=== PATIENT | male | born 1990 | race African-American/Black ===

== ENCOUNTER → 2022-01-14 10:01 | Day surgery (SDC) | payer OTHER, SELFPAY ==
[2022-01-14 10:24] VITALS: BMI 27.2
[2022-01-14 10:25] VITALS: BP 136/78; PULSE 118; RESP 28; TEMP 36.6; O2SAT 95
[2022-01-14 10:36] LABS: MANUAL DIFF FLAG NO
[2022-01-14 10:41] LABS: Basophils Percent Auto 0.3 % (0-2); Eosinophils Absolute Auto 0.1 X10*3/uL (0.0-0.4); Eosinophils Percent Auto 0.9 % (0-4); Hematocrit 34.6 % (42.0-52.0); Hemoglobin 10.7 g/dl (14.0-18.0); Imm Gran Abs Auto 0.06 X10*3/uL (0.00-0.03); Imm Gran Pct Auto 0.7 % (0.0-0.4); Lymphocytes Absolute Auto 0.7 X10*3/uL (1.2-4.9); Lymphocytes Percent Auto 7.1 % (20-40); Mean Corpuscular HGB Conc 30.9 g/dl (31.0-36.0); Mean Corpuscular Hemoglobin 27.2 pg (27.0-33.0); Mean Platelet Volume 11.5 fL (9.4-12.4); Neutrophils Absolute Auto 7.3 x10*3/uL (2.0-8.3); Platelet Count 162 X10*3/uL (160-400); Red Blood Count 3.93 X10*6/uL (4.60-5.80); Red Cell Distribution Width 20.4 % (11.0-16.0); White Blood Count 9.1 X10*3/uL (4.8-10.8)
[2022-01-14 10:46] LABS: INTERNATIONAL NORM RATIO 1.1 (0.9-1.1); Prothrombin Time 12.6 SEC (10.0-13.1)
--- NOTE | 2022-01-14 10:46 | PC.NURSE ---
dr conway will assess patient prior to procedure
[2022-01-14 10:49] LABS: Partial Thromboplastin Time 30.7 SEC (26.0-36.4)
[2022-01-14 11:29] LABS: Anion Gap 22 (12-20); Carbon Dioxide 22 mmol/L (22-29); Chloride 92 mmol/L (96-108); Potassium 3.6 mmol/L (3.3-5.1); Sodium 132 mmol/L (135-145)
--- NOTE | 2022-01-14 11:35 | PC.NURSE ---
pt cancelled by surgeron will keep f/u appt
--- NOTE | 2022-01-14 12:13 | PC.NURSE ---
pt cancelled per surgeron congested cough will be rescheduled
== END ==
PROVIDERS: Visit Provider Transplant Surgery
DX: N18.6 End stage renal disease (principal); Z53.09 Procedure and treatment not carried out because of other contraindication; R05.9 Cough, unspecified
CPT/HCPCS: 36415; 80051; 85025; 85610; 85730

== ENCOUNTER 2022-09-08 10:48 | Emergency (ER) | payer OTHER, SELFPAY ==
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
[2022-09-08 10:55] VITALS: BP 128/64; PULSE 108; O2SAT 95
[2022-09-08 10:57] VITALS: BP 136/81; PULSE 103; RESP 18; TEMP 36.8; O2SAT 97; BMI 27.9
[2022-09-08 10:59] VITALS: BP 136/81; PULSE 103; RESP 18; TEMP 36.8; O2SAT 95
--- NOTE | 2022-09-08 11:07 | PC.NURSE ---
ARRIVED TO ED IN [facility] JAIN TO BEDSIDE. COLLAR REMOVED. NEURO ASSESSMENT PERFORMED BY PROVIDER. PLAN IS FOR XRAYS. PT AGREEABLE TO PLAN
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
--- OUTSIDE RECORDS SUMMARY | 2022-09-08 11:33 | XMS_ITS | Continuity of Care Document ---
:1990 Author Organization [facility] Address [address] [place] [address]- Care Team Providers Name Role Phone Jhony BRADLEY, Denice Primary Care Physician Encounter [facility] [place] Date(s): 04/25/21 - 06/06/21 [facility] [address] [place] [address]- Attending Physician: Not on Staff, Attending MD Allergies, Adverse Reactions, Alerts Substance Reaction Severity Status NKA Active Immunizations Given and Recorded Vaccine Date Status Refusal Reason pneumococcal 23-valent vaccine1 12/30/14 Given pneumococcal 23-valent vaccine2 03/20/10 Given influenza virus vaccine, live3 12/30/14 Given Not Given Vaccine Date Status Refusal Reason influenza virus vaccine, inactivated 04/11/21 Not Given Patient Refuses 1Admin Note: [email or web address] Note: By [id number] Note: Dialysis Medications apixaban 5 mg oral tablet 1 tablet = 5 mg, By Mouth, 2 times a day, # 60 tablet, 3 Refills, Maintenance, 05/02/21 20:58:00 EST, Tablet, [facility], Partial fill upon patient request if the prescription is for aschedule II opioid drug., 165, cm, 04/24/21 11:40... Start Date: 05/02/21 Stop Date: 08/30/21 Status: Orderedaspirin 81 mg oral tablet, chewable 81 mg, 1, tablet, By Mouth, Daily, # 30 tablet, Refills 0, Tot. Refills 0, Maintenance, 04/24/21 14:02:00 EDT, Route to Pharmacy Electronically, [facility], Partial fill upon patient request if the prescription is for a schedule II op... Start Date: 04/24/21 Stop Date: 05/24/21 Status: Orderedatorvastatin 20 mg oral tablet 1 tablet = 20 mg, By Mouth, Daily, # 90 tablet, 0 Refills, Maintenance, 01/30/21 13:55:00 EDT, Tablet, [facility], Partial fill upon patient request if the prescription is for a schedule II opioid drug., 165.1, cm, 01/30/21 7:26:00 EDT,... Start Date: 01/30/21 Status: Orderedcalcitriol 0.25 mcg oral capsule 2 capsule = 0.5 mcg, By Mouth, Every Tuesday, Tuesday and Tuesday, # 26 capsule, 0 Refills, Maintenance, 04/24/21 14:01:00 EDT, Capsule, [facility], Partial fill upon patient request if the prescription is for a schedule II opioid micheal... Start Date: 04/24/21 Stop Date: 05/24/21 Status: Orderedcarvedilol 12.5 mg oral tablet 12.5 mg, 1, tablet, By Mouth, Every 12 hours, # 60 tablet, Refills 1, Tot. Refills 1, Maintenance, 03/08/21 12:23:00 EDT, Route to Pharmacy Electronically, [facility], Partial fill upon patient request if the prescription is for a schedu... Start Date: 03/08/21 Status: OrderedEnvarsus XR 4 mg oral tablet, extended release 3 tablet = 12 mg, By Mouth, Daily in AM, # 42 tablet, 0 Refills, Maintenance, 04/24/21 14:09:00 EDT,XR Tablet, [facility], Partial fill upon patient request if the prescription is fora schedule II opioid drug., 165, cm, 04/24/21 11:... Start Date: 04/24/21 Stop Date: 05/08/21 Status: Orderedisosorbide mononitrate 30 mg oral tablet, extended release 60 mg, 2, tablet, By Mouth, Daily, # 60 tablet, Refills 1, Tot. Refills 1, Maintenance, 01/30/21 13:54:00 EDT, Route to Pharmacy Electronically, [facility], Partial fill upon patient request if the prescription is for a schedule II opioi... Start Date: 01/30/21 Stop Date: 03/31/21 Status: OrderedLasix 80 mg oral tablet See Instructions, 1 tablet By Mouth Every Tuesday, , Tuesday and Tuesday. STOP TORSEMIDE, # 16 tablet, Refills 0, Tot. Refills 0, Maintenance, 04/24/21 14:02:00 EDT, Instructions Replace Required Details, Route to Pharmacy Electronically, [facility]... Start Date: 04/24/21 Status: OrderedMag-Ox 400 400 mg oral tablet 1 tablet = 400 mg, By Mouth, Daily, 0 Refills, Maintenance, 04/10/21 2:32:00 EDT, Tablet Start Date: 04/10/21 Status: OrderedMyfortic 180 mg oral delayed release tablet 3 tablet = 540 mg, By Mouth, 2 times a day, # 180 tablet, 1 Refills, Maintenance, 01/30/21 13:51:00 EDT, [facility], 165.1, cm, 01/30/21 7:26:00 EDT, Height, 80.9, kg, 01/26/21 20:14:00 EDT, Dry Weight Start Date: 01/30/21 Stop Date: 03/31/21 Status: OrderedRenvela 800 mg oral tablet 1 tablet = 800 mg, By Mouth, 3 times a day with meals, # 90 tablet, 0 Refills, Maintenance, 04/24/2114:03:00 EDT, Tablet, [facility], Partial fill upon patient request if the prescription is for a schedule II opioid drug., 165, cm, 1... 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
--- OUTSIDE RECORDS SUMMARY | 2022-09-08 11:33 | XMS_ITS | Continuity of Care Document ---
:1990 Author Organization [facility] Address [address] [place] [id number]- Care Team Providers Name Role Phone Bernadette De Los Santos MD Primary Care Physician Encounter [facility] [place] Date(s): 11/19/21 - 12/27/21 [facility] [address] [place] [id number]- Attending Physician: Ernestine Bloom MD Admitting Physician: Ernestine Bloom MD Referring Physician: Eris Ramey Allergies, Adverse Reactions, Alerts No Known Allergies Immunizations Given and Recorded Vaccine Date Status Refusal Reason pneumococcal 23-valent vaccine1 12/30/14 Given pneumococcal 23-valent vaccine2 03/20/10 Given influenza virus vaccine, live3 12/30/14 Given Not Given Vaccine Date Status Refusal Reason influenza virus vaccine, inactivated 04/11/21 Not Given Patient Refuses 1Admin Note: [email or web address] Note: By [id number] Note: Dialysis Medications acetaminophen 325 mg oral tablet 650 mg, 2, tablet, By Mouth, Every 8 hours, PRN, # 100 tablet, Refills 1, Tot. Refills 1, Maintenance, Pain , Moderate, 11/10/21 10:05:00 EDT, [facility] upon patient request if the presc... Start Date: 11/10/21 Status: Orderedapixaban 5 mg oral tablet 1 tablet = 5 mg, By Mouth, 2 times a day, # 60 tablet, 3 Refills, Maintenance, 05/02/21 20:58:00 EST, Tablet, [facility], Partial fill upon patient request if the prescription is for aschedule II opioid drug., 165, cm, 04/24/21 11:40... Start Date: 05/02/21 Stop Date: 08/30/21 Status: Orderedcalcitriol 0.25 mcg oral capsule 2 capsule = 0.5 mcg, By Mouth, Every Tuesday, Tuesday and Tuesday, # 26 capsule, 0 Refills, Maintenance, 04/24/21 14:01:00 EDT, Capsule, [facility], Partial fill upon patient request if the prescription is for a schedule II opioid micheal... Start Date: 04/24/21 Stop Date: 05/24/21 Status: Orderedcarvedilol 12.5 mg oral tablet 12.5 mg, 1, tablet, By Mouth, Every 12 hours, # 60 tablet, Refills 1, Tot. Refills 1, Maintenance, 03/08/21 12:23:00 EDT, Route to Pharmacy Electronically, [facility], Partial fill upon patient request if the prescription is for a schedu... Start Date: 03/08/21 Status: OrderedEnvarsus XR 4 mg oral tablet, extended release 3 tablet = 12 mg, By Mouth, Daily in AM, # 42 tablet, 0 Refills, Maintenance, 04/24/21 14:09:00 EDT,XR Tablet, [facility], Partial fill upon patient request if the prescription is fora schedule II opioid drug., 165, cm, 04/24/21 11:... Start Date: 04/24/21 Stop Date: 05/08/21 Status: Orderedisosorbide mononitrate 30 mg oral tablet, extended release 60 mg, 2, tablet, By Mouth, Daily, # 60 tablet, Refills 1, Tot. Refills 1, Maintenance, 01/30/21 13:54:00 EDT, Route to Pharmacy Electronically, [facility], Partial fill upon patient request if the prescription is for a schedule II opioi... Start Date: 01/30/21 Stop Date: 03/31/21 Status: OrderedLasix 80 mg oral tablet See Instructions, 1 tablet By Mouth Every Tuesday, , Tuesday and Tuesday. STOP TORSEMIDE, # 16 tablet, Refills 0, Tot. Refills 0, Maintenance, 04/24/21 14:02:00 EDT, Instructions Replace Required Details, Route to Pharmacy Electronically, [facility]... Start Date: 04/24/21 Status: OrderedMag-Ox 400 400 mg oral tablet 1 tablet = 400 mg, By Mouth, Daily, 0 Refills, Maintenance, 04/10/21 2:32:00 EDT, Tablet Start Date: 04/10/21 Status: OrderedMyfortic 180 mg oral delayed release tablet 3 tablet = 540 mg, By Mouth, 2 times a day, # 180 tablet, 1 Refills, Maintenance, 01/30/21 13:51:00 EDT, [facility], 165.1, cm, 01/30/21 7:26:00 EDT, Height, 80.9, kg, 01/26/21 20:14:00 EDT, Dry Weight Start Date: 01/30/21 Stop Date: 03/31/21 Status: OrderedRenvela 800 mg oral tablet 1 tablet = 800 mg, By Mouth, 3 times a day with meals, # 90 tablet, 0 Refills, Maintenance, 04/24/2114:03:00 EDT, Tablet, [facility], Partial fill upon patient request if the prescription is for a schedule II opioid drug., 165, cm, 1... Start Date: 04/24/21 Stop Date: 05/24/21 Status: OrderedtraMADol 50 mg oral tablet 1 tablet = 50 mg, By Mouth, Daily at bedtime, for severe pain may obtain fewer, # 7 tablet, 0 Refills, Maintenance, 11/10/21 11:27:00 EDT[facility] upon patient request if the prescription is for a schedule II opioid d... Start Date: 11/10/21 Status: Ordered Problem List Condition Effective Dates [...]
--- OUTSIDE RECORDS SUMMARY | 2022-09-08 11:33 | XMS_ITS | Continuity of Care Document ---
:1990 Author Organization [facility] Address [address] [place] [address]- Care Team Providers Name Role Phone Jhony BRADLEY, Denice Primary Care Physician Encounter [facility] Date(s): 05/04/21 - 06/03/21 [facility] [address] [place] [id number]- Attending Physician: Andrez River Admitting Physician: Andrez River Referring Physician: Andrez River Allergies, Adverse Reactions, Alerts Substance Reaction Severity Status NKA Active Immunizations Given and Recorded Vaccine Date Status Refusal Reason pneumococcal 23-valent vaccine1 12/30/14 Given pneumococcal 23-valent vaccine2 03/20/10 Given influenza virus vaccine, live3 12/30/14 Given Not Given Vaccine Date Status Refusal Reason influenza virus vaccine, inactivated 04/11/21 Not Given Patient Refuses 1Admin Note: [email or web address] Note: By [email or web address] Note: Dialysis Medications apixaban 5 mg oral tablet 1 tablet = 5 mg, By Mouth, 2 times a day, # 60 tablet, 3 Refills, Maintenance, 05/02/21 20:58:00 EST, Tablet, [facility], Partial fill upon patient request if the prescription is for aschedule II opioid drug., 165, cm, 04/24/21 11:40... Start Date: 05/02/21 Stop Date: 08/30/21 Status: Orderedaspirin 81 mg oral tablet, chewable 81 mg, 1, tablet, By Mouth, Daily, # 30 tablet, Refills 0, Tot. Refills 0, Maintenance, 04/24/21 14:02:00 EDT, Route to Pharmacy Electronically, [facility], Partial fill upon patient request if the prescription is for a schedule II op... Start Date: 04/24/21 Stop Date: 05/24/21 Status: Orderedatorvastatin 20 mg oral tablet 1 tablet = 20 mg, By Mouth, Daily, # 90 tablet, 0 Refills, Maintenance, 01/30/21 13:55:00 EDT, Tablet, [facility], Partial fill upon patient request if the prescription is for a schedule II opioid drug., 165.1, cm, 01/30/21 7:26:00 EDT,... Start Date: 01/30/21 Status: Orderedcalcitriol 0.25 mcg oral capsule 2 capsule = 0.5 mcg, By Mouth, Every Tuesday, Tuesday and Tuesday, # 26 capsule, 0 Refills, Maintenance, 04/24/21 14:01:00 EDT, Capsule, [facility], Partial fill upon patient request if the prescription is for a schedule II opioid micheal... Start Date: 04/24/21 Stop Date: 05/24/21 Status: Orderedcarvedilol 12.5 mg oral tablet 12.5 mg, 1, tablet, By Mouth, Every 12 hours, # 60 tablet, Refills 1, Tot. Refills 1, Maintenance, 03/08/21 12:23:00 EDT, Route to Pharmacy Electronically, [facility], Partial fill upon patient request if the prescription is for a schedu... Start Date: 03/08/21 Status: OrderedEnvarsus XR 4 mg oral tablet, extended release 3 tablet = 12 mg, By Mouth, Daily in AM, # 42 tablet, 0 Refills, Maintenance, 04/24/21 14:09:00 EDT,XR Tablet, [facility], Partial fill upon patient request if the prescription is fora schedule II opioid drug., 165, cm, 04/24/21 11:... Start Date: 04/24/21 Stop Date: 05/08/21 Status: Orderedisosorbide mononitrate 30 mg oral tablet, extended release 60 mg, 2, tablet, By Mouth, Daily, # 60 tablet, Refills 1, Tot. Refills 1, Maintenance, 01/30/21 13:54:00 EDT, Route to Pharmacy Electronically, [facility], Partial fill upon patient request if [...] tablet, 1 Refills, Maintenance, 01/30/21 13:51:00 EDT, [facility], 165.1, cm, 01/30/21 7:26:00 EDT, Height, 80.9, kg, 01/26/21 20:14:00 EDT, Dry Weight Start Date: 01/30/21 Stop Date: 03/31/21 Status: OrderedRenvela 800 mg oral tablet 1 tablet = 800 mg, By Mouth, 3 times a day with meals, # 90 tablet, 0 Refills, Maintenance, 04/24/2114:03:00 EDT, Tablet, [facility], Partial fill upon patient [...]
--- OUTSIDE RECORDS SUMMARY | 2022-09-08 11:34 | XMS_ITS | Continuity of Care Document ---
:1990 Author Organization [facility] Address [address] [place] [address]- Care Team Providers Name Role Phone Jhony BRADLEY, Ya Primary Care Physician [facility]counter [facility] Date(s): 01/26/21 - 04/08/21 [facility] [address], [place] [address] Attending Physician: Cristian Wetzel MD Admitting Physician: Cristian Wetzel MD Allergies, Adverse Reactions, Alerts Substance Reaction Severity Status NKA Active Immunizations Given and Recorded Vaccine Date Status Refusal Reason pneumococcal 23-valent vaccine1 12/30/14 Given pneumococcal 23-valent vaccine2 03/20/10 Given influenza virus vaccine, live3 12/30/14 Given 1Admin Note: [email or web address] Note: By [id number] Note: Dialysis Medications amLODIPine 5 mg oral tablet 5 mg, 1, tablet, By Mouth, Daily, # 30 tablet, Refills 0, Tot. Refills 0, Maintenance, 03/08/21 12:25:00 EDT, Route to Pharmacy Electronically, [facility], Partial fill upon patient request if the prescription is for a schedule II opioid... Start Date: 03/08/21 Stop Date: 04/07/21 Status: Orderedapixaban 5 mg oral tablet 0.5, By Mouth, 2 times a day, # 15 capsule, 0 Refills, Maintenance, 03/08/21 12:23:00 EDT, Tablet, [facility], Partial fill upon patient request if the prescription is for a schedule II opioid drug., 165, cm, 03/08/21 8:48:00 EDT, Height... Start Date: 03/08/21 Stop Date: 05/02/21 Status: Orderedatorvastatin 20 mg oral tablet 1 tablet = 20 mg, By Mouth, Daily, # 90 tablet, 0 Refills, Maintenance, 01/30/21 13:55:00 EDT, Tablet, [facility], Partial fill upon patient request if the prescription is for a schedule II opioid drug., 165.1, cm, 01/30/21 7:26:00 EDT,... Start Date: 01/30/21 Status: Orderedcarvedilol 12.5 mg oral tablet 12.5 mg, 1, tablet, By Mouth, Every 12 hours, # 60 tablet, Refills 1, Tot. Refills 1, Maintenance, 03/08/21 12:23:00 EDT, Route to Pharmacy Electronically, [facility], Partial fill upon patient request if the prescription is for a schedu... Start Date: 03/08/21 Status: Orderedcinacalcet 30 mg oral tablet 1 tablet = 30 mg, By Mouth, Daily, # 30 tablet, 1 Refills, Maintenance, 01/30/21 13:51:00 EDT, Tablet, [facility], Partial fill upon patient request if the prescription is for a schedule II opioid drug., 165.1, cm, 01/30/21 7:26:00 EDT,... Start Date: 01/30/21 Status: OrderedEnvarsus XR 1 mg oral tablet, extended release 1 tablet = 1 mg, By Mouth, 2 times a day, # 60 tablet, 1 Refills, Maintenance, 01/30/21 13:52:00 EDT, XR Tablet, [facility], Partial fill upon patient request if the prescription is for aschedule II opioid drug., 165.1, cm, 01/30/21 7:2... Start Date: 01/30/21 Status: OrderedEnvarsus XR 4 mg oral tablet, extended release 1 tablet = 4 mg, By Mouth, 2 times a day, # 60 tablet, 0 Refills, Maintenance, 01/30/21 13:52:00 EDT, XR Tablet, [facility], Partial fill upon patient request if the prescription is for aschedule II opioid drug., 165.1, cm, 01/30/21 7:2... Start Date: 01/30/21 Status: OrderedhydrALAZINE 25 mg oral tablet 50 mg, 2, tablet, By Mouth, 3 times a day, # 90 tablet, Refills 1, Tot. Refills 1, Maintenance, 03/08/21 12:24:00 EDT, Route to Pharmacy Electronically, [facility], Partial fill upon patient request if the prescription is for a schedule... Start Date: 03/08/21 Status: Orderedisosorbide mononitrate 30 mg oral tablet, extended release 60 mg, 2, tablet, By Mouth, Daily, # 60 tablet, Refills 1, Tot. Refills 1, Maintenance, 01/30/21 13:54:00 EDT, Route to Pharmacy Electronically, [facility], Partial fill upon patient request if the prescription is for a schedule II opioi... Start Date: 01/30/21 Stop Date: 03/31/21 Status: OrderedMyfortic 180 mg oral delayed release tablet 3 tablet = 540 mg, By Mouth, 2 times a day, # 180 tablet, 1 Refills, Maintenance, 01/30/21 13:51:00 EDT, [facility], 165.1, cm, 01/30/21 7:26:00 EDT, Height, 80.9, kg, 01/26/21 20:14:00 EDT, Dry Weight Start Date: 01/30/21 Stop Date: 03/31/21 Status: Orderedsodium bicarbonate 650 mg oral tablet 1 tablet = 650 mg, By Mouth, 2 times a day, # 60 tablet, 0 Refills, Acute 05/30/21 10:00:00 EST, 01/30/21 13:51:00 EDT, Tablet, [facility], Partial fill upon patient request if the prescription is for a schedule II opioid drug., 165.1, c... Start Date: 01/30/21 Stop Date: 05/30/21 Status: Orderedtorsemide 20 mg oral tablet 2 tablet = 40 mg, By Mouth, 2 times a day, # 120 tablet, 0 Refills, Maintenance, 03/25/21 12:27:00 EDT, Tablet, [facility], Order changed from 40mg daily to twice daily, 165, cm, 03/25/2111:04:00 EDT, Height, 83.1, kg, 03/05/21 22:43:00... 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
--- OUTSIDE RECORDS SUMMARY | 2022-09-08 11:34 | XMS_ITS | Continuity of Care Document ---
:1990 Author Organization [facility] Address Unavailable , Care Team Providers Name Role Phone Denice Booker MD Primary Care Physician [place] [facility] [place] [id number] Date(s): 05/28/21 - 06/27/21 [facility] Attending Physician: Andrez River Admitting Physician: Andrez [...] 04/11/21 Not Given Patient Refuses 1Admin Note: [id number] Note: By [id number] Note: Dialysis Medications apixaban 5 mg oral tablet 1 tablet = 5 mg, By Mouth, 2 times a day, # 60 tablet, 3 Refills, Maintenance, 05/02/21 20:58:00 EST, Tablet, [facility], Partial fill upon patient request if the prescription is for aschedule II opioid drug., 165, cm, 04/24/21 11:40... Start Date: 05/02/21 Stop Date: 08/30/21 Status: Orderedaspirin 81 mg oral tablet, chewable 81 mg, 1, tablet, By Mouth, Daily, # 30 tablet, Refills 0, Tot. Refills 0, Maintenance, 04/24/21 14:02:00 EDT, Route to Pharmacy Electronically, [facility], Partial fill upon patient request if the prescription is for a schedule II op... Start Date: 04/24/21 Stop Date: 05/24/21 Status: Orderedatorvastatin 20 mg oral tablet 1 tablet = 20 mg, By Mouth, Daily, # 90 tablet, 0 Refills, Maintenance, 01/30/21 13:55:00 EDT, Tablet, [facility], Partial fill upon patient request if the prescription is for a schedule II opioid drug., 165.1, cm, 01/30/21 7:26:00 EDT,... Start Date: 01/30/21 Status: Orderedcalcitriol 0.25 mcg oral capsule 2 capsule = 0.5 mcg, By Mouth, Every Tuesday, Tuesday and Tuesday, # 26 capsule, 0 Refills, Maintenance, 04/24/21 14:01:00 EDT, Capsule, [facility], Partial fill upon patient request if the prescription is for a schedule II opioid micheal... Start Date: 04/24/21 Stop Date: 05/24/21 Status: Orderedcarvedilol 12.5 mg oral tablet 12.5 mg, 1, tablet, By Mouth, Every 12 hours, # 60 tablet, Refills 1, Tot. Refills 1, Maintenance, 03/08/21 12:23:00 EDT, Route to Pharmacy Electronically, [facility], Partial fill upon patient request if the prescription is for a schedu... Start Date: 03/08/21 Status: OrderedEnvarsus XR 4 mg oral tablet, extended release 3 tablet = 12 mg, By Mouth, Daily in AM, # 42 tablet, 0 Refills, Maintenance, 04/24/21 14:09:00 EDT,XR Tablet, [facility], Partial fill upon patient request if the prescription is fora schedule II opioid drug., 165, cm, 04/24/21 11:... Start Date: 04/24/21 Stop Date: 05/08/21 Status: Orderedisosorbide mononitrate 30 mg oral tablet, extended release 60 mg, 2, tablet, By Mouth, Daily, # 60 tablet, Refills 1, Tot. Refills 1, Maintenance, 01/30/21 13:54:00 EDT, Route to Pharmacy Electronically, [facility], Partial fill upon patient request if the prescription is for a schedule II opioi... Start Date: 01/30/21 Stop Date: 03/31/21 Status: OrderedLasix 80 mg oral tablet See Instructions, 1 tablet By Mouth Every Tuesday, , Tuesday and Tuesday. STOP TORSEMIDE, # 16 tablet, Refills 0, Tot. Refills 0, Maintenance, 04/24/21 14:02:00 EDT, Instructions Replace Required Details, Route to Pharmacy Electronically, [facility]... Start Date: 04/24/21 Status: OrderedMag-Ox 400 400 mg oral tablet 1 tablet = 400 mg, By Mouth, Daily, 0 Refills, Maintenance, 04/10/21 2:32:00 EDT, Tablet Start Date: 04/10/21 Status: OrderedMyfortic 180 mg oral delayed release tablet 3 tablet = 540 mg, By Mouth, 2 times a day, # 180 tablet, 1 Refills, Maintenance, 01/30/21 13:51:00 EDT, [facility], 165.1, cm, 01/30/21 7:26:00 EDT, Height, 80.9, kg, 01/26/21 20:14:00 EDT, Dry Weight Start Date: 01/30/21 Stop Date: 03/31/21 Status: OrderedRenvela 800 mg oral tablet 1 tablet = 800 mg, By Mouth, 3 times a day with meals, # 90 tablet, 0 Refills, Maintenance, 04/24/2114:03:00 EDT, Tablet, [facility], Partial fill upon patient [...]
--- OUTSIDE RECORDS SUMMARY | 2022-09-08 11:34 | XMS_ITS | Continuity of Care Document ---
:1990 Author Organization [facility] Address [address] [place] [address]- Care Team Providers Name Role Phone Not on Staff, PCP Primary Care Physician Unavailable Encounter [facility] Date(s): 05/16/20 - 06/15/20 [facility] [address] [place], [place] [address] Attending Physician: Andrez River Admitting Physician: Andrez River Referring Physician: Andrez River Allergies, Adverse Reactions, Alerts Substance Reaction Severity Status NKA Active Immunizations Given and Recorded Vaccine Date Status Refusal Reason pneumococcal 23-valent vaccine1 12/30/14 Given pneumococcal 23-valent vaccine2 03/20/10 Given influenza virus vaccine, live3 12/30/14 Given 1Admin Note: [id number] Note: By [id number] Note: Dialysis Medications labetalol 100 mg oral tablet 3 tablet = 300 mg, By Mouth, 3 times a day, # 270 tablet, 0 Refills, Maintenance, 05/26/20 14:41:00 EST, Tablet, [facility], Partial fill upon patient request if the prescription is for aschedule II opioid drug., 165, cm, 05/26/20 7:46:... Start Date: 05/26/20 Stop Date: 06/25/20 Status: OrderedMyfortic 180 mg oral delayed release tablet 3 tablet = 540 mg, By Mouth, 2 times a day, # 180 tablet, 11 Refills, Maintenance, 05/02/17 7:53:09 Start Date: 05/02/17 Stop Date: 04/27/18 Status: OrderedNIFEdipine 60 mg oral tablet, extended release 60 mg, 1, tablet, By Mouth, Every 12 hours, # 60 tablet, Refills 0, Tot. Refills 0, Maintenance, 05/26/20 14:41:00 EST, Route to Pharmacy Electronically, [facility], Partial fill upon patient request if the prescription is for a schedule... Start Date: 05/26/20 Stop Date: 06/25/20 Status: Orderedtacrolimus 1 mg oral capsule, extended release See Instructions, 5 mg By Mouth 2 times a day, # 30 tablet, 0 Refills, Maintenance, 02/10/17 11:31:06 EDT, ER Capsule, [facility] Start Date: 02/10/17 Status: OrderedTylenol 325 mg oral tablet 650 mg, 2, tablet, By Mouth, Every 6 hours, PRN, Refills 0, Maintenance, Temperature, 05/26/20 14:41:00 EST, Partial fill upon patient request if the prescription is for a schedule II opioid drug. Start Date: 05/26/20 Status: Ordered Problem List Condition Effective Dates [...] some day smoker entered on: 04/15/17 Sex Male
--- OUTSIDE RECORDS SUMMARY | 2022-09-08 11:34 | XMS_ITS | Continuity of Care Document ---
:1990 Author Organization [facility] Address [address] [place] [address]- Care Team Providers Name Role Phone Jhony BRADLEY, Denice Primary Care Physician [place] [facility] [place] 10[place]21 [facility] [address], [place] [address] Allergies, Adverse Reactions, Alerts No Known Allergies Immunizations Given and Recorded Vaccine Date Status Refusal Reason pneumococcal 23-valent vaccine1 12/30/14 Given pneumococcal 23-valent vaccine2 03/20/10 Given influenza virus vaccine, live3 12/30/14 Given Not Given Vaccine Date Status Refusal Reason influenza virus vaccine, inactivated 04/11/21 Not Given Patient Refuses 1Admin Note: [id number] Note: By [id number] Note: Dialysis Medications apixaban 5 mg oral tablet 1 tablet = 5 mg, By Mouth, 2 times a day, # 60 tablet, 3 Refills, Maintenance, 05/02/21 20:58:00 EST, Tablet, [facility], Partial fill upon patient request if the prescription is for aschedule II opioid drug., 165, cm, 04/24/21 11:40... Start Date: 05/02/21 Stop Date: 08/30/21 Status: Orderedaspirin 81 mg oral tablet, chewable 81 mg, 1, tablet, By Mouth, Daily, # 30 tablet, Refills 0, Tot. Refills 0, Maintenance, 04/24/21 14:02:00 EDT, Route to Pharmacy Electronically, [facility], Partial fill upon patient request if the prescription is for a schedule II op... Start Date: 04/24/21 Stop Date: 05/24/21 Status: Orderedatorvastatin 20 mg oral tablet 1 tablet = 20 mg, By Mouth, Daily, # 90 tablet, 0 Refills, Maintenance, 01/30/21 13:55:00 EDT, Tablet, [facility], Partial fill upon patient request if the prescription is for a schedule II opioid drug., 165.1, cm, 01/30/21 7:26:00 EDT,... Start Date: 01/30/21 Status: Orderedcalcitriol 0.25 mcg oral capsule 2 capsule = 0.5 mcg, By Mouth, Every Tuesday, Tuesday and Tuesday, # 26 capsule, 0 Refills, Maintenance, 04/24/21 14:01:00 EDT, Capsule, [facility], Partial fill upon patient request if the prescription is for a schedule II opioid micheal... Start Date: 04/24/21 Stop Date: 05/24/21 Status: Orderedcarvedilol 12.5 mg oral tablet 12.5 mg, 1, tablet, By Mouth, Every 12 hours, # 60 tablet, Refills 1, Tot. Refills 1, Maintenance, 03/08/21 12:23:00 EDT, Route to Pharmacy Electronically, [facility], Partial fill upon patient request if the prescription is for a schedu... Start Date: 03/08/21 Status: OrderedEnvarsus XR 4 mg oral tablet, extended release 3 tablet = 12 mg, By Mouth, Daily in AM, # 42 tablet, 0 Refills, Maintenance, 04/24/21 14:09:00 EDT,XR Tablet, [facility], Partial fill upon patient request if the prescription is fora schedule II opioid drug., 165, cm, 04/24/21 11:... Start Date: 04/24/21 Stop Date: 05/08/21 Status: Orderedisosorbide mononitrate 30 mg oral tablet, extended release 60 mg, 2, tablet, By Mouth, Daily, # 60 tablet, Refills 1, Tot. Refills 1, Maintenance, 01/30/21 13:54:00 EDT, Route to Pharmacy Electronically, [facility], Partial fill upon patient request if the prescription is for a schedule II opioi... Start Date: 01/30/21 Stop Date: 03/31/21 Status: OrderedLasix 80 mg oral tablet See Instructions, 1 tablet By Mouth Every Tuesday, , Tuesday and Tuesday. STOP TORSEMIDE, # 16 tablet, Refills 0, Tot. Refills 0, Maintenance, 04/24/21 14:02:00 EDT, Instructions Replace Required Details, Route to Pharmacy Electronically, [facility]... Start Date: 04/24/21 Status: OrderedMag-Ox 400 400 mg oral tablet 1 tablet = 400 mg, By Mouth, Daily, 0 Refills, Maintenance, 04/10/21 2:32:00 EDT, Tablet Start Date: 04/10/21 Status: OrderedMyfortic 180 mg oral delayed release tablet 3 tablet = 540 mg, By Mouth, 2 times a day, # 180 tablet, 1 Refills, Maintenance, 01/30/21 13:51:00 EDT, [facility], 165.1, cm, 01/30/21 7:26:00 EDT, Height, 80.9, kg, 01/26/21 20:14:00 EDT, Dry Weight Start Date: 01/30/21 Stop Date: 03/31/21 Status: OrderedRenvela 800 mg oral tablet 1 tablet = 800 mg, By Mouth, 3 times a day with meals, # 90 tablet, 0 Refills, Maintenance, 04/24/2114:03:00 EDT, Tablet, [facility], Partial fill upon patient request [...]
--- OUTSIDE RECORDS SUMMARY | 2022-09-08 11:34 | XMS_ITS | Continuity of Care Document ---
:1990 Author Organization [facility] Address [address] [place] [address]- Care Team Providers Name Role Phone Jhony BRADLEY, Denice Primary Care Physician [place] [facility] [place] 02[place]21 - 06/03/21 [facility] [address] [place] [id number]- Attending Physician: Marge BRADLEY, Joshua Ji Admitting Physician: Marge BRADLEY, Joshua Ji Referring Physician: Gabrielle Blue MD Allergies, Adverse Reactions, Alerts Substance Reaction Severity Status NKA Active Immunizations Given and Recorded Vaccine Date Status Refusal Reason pneumococcal 23-valent vaccine1 12/30/14 Given pneumococcal 23-valent vaccine2 03/20/10 Given influenza virus vaccine, live3 12/30/14 Given Not Given Vaccine Date Status Refusal Reason influenza virus vaccine, inactivated 04/11/21 Not Given Patient Refuses 1Admin Note: [id number] Note: By [id number] Note: Dialysis Medications apixaban 5 mg oral tablet 1 tablet = 5 mg, By Mouth, 2 times a day, # 60 tablet, 3 Refills, Maintenance, 05/02/21 20:58:00 EST, Tablet, [facility], Partial fill upon patient request if the prescription is for aschedule II opioid drug., 165, cm, 04/24/21 11:40... Start Date: 05/02/21 Stop Date: 08/30/21 Status: Orderedaspirin 81 mg oral tablet, chewable 81 mg, 1, tablet, By Mouth, Daily, # 30 tablet, Refills 0, Tot. Refills 0, Maintenance, 04/24/21 14:02:00 EDT, Route to Pharmacy Electronically, [facility], Partial fill upon patient request if the prescription is for a schedule II op... Start Date: 04/24/21 Stop Date: 05/24/21 Status: Orderedatorvastatin 20 mg oral tablet 1 tablet = 20 mg, By Mouth, Daily, # 90 tablet, 0 Refills, Maintenance, 01/30/21 13:55:00 EDT, Tablet, [facility], Partial fill upon patient request if the prescription is for a schedule II opioid drug., 165.1, cm, 01/30/21 7:26:00 EDT,... Start Date: 01/30/21 Status: Orderedcalcitriol 0.25 mcg oral capsule 2 capsule = 0.5 mcg, By Mouth, Every Tuesday, Tuesday and Tuesday, # 26 capsule, 0 Refills, Maintenance, 04/24/21 14:01:00 EDT, Capsule, [facility], Partial fill upon patient request if the prescription is for a schedule II opioid micheal... Start Date: 04/24/21 Stop Date: 05/24/21 Status: Orderedcarvedilol 12.5 mg oral tablet 12.5 mg, 1, tablet, By Mouth, Every 12 hours, # 60 tablet, Refills 1, Tot. Refills 1, Maintenance, 03/08/21 12:23:00 EDT, Route to Pharmacy Electronically, [facility], Partial fill upon patient request if the prescription is for a schedu... Start Date: 03/08/21 Status: OrderedEnvarsus XR 4 mg oral tablet, extended release 3 tablet = 12 mg, By Mouth, Daily in AM, # 42 tablet, 0 Refills, Maintenance, 04/24/21 14:09:00 EDT,XR Tablet, [facility], Partial fill upon patient request if the prescription is fora schedule II opioid drug., 165, cm, 04/24/21 11:... Start Date: 04/24/21 Stop Date: 05/08/21 Status: Orderedisosorbide mononitrate 30 mg oral tablet, extended release 60 mg, 2, tablet, By Mouth, Daily, # 60 tablet, Refills 1, Tot. Refills 1, Maintenance, 01/30/21 13:54:00 EDT, Route to Pharmacy Electronically, [facility], Partial fill upon patient request if the prescription is for a schedule II opioi... Start Date: 01/30/21 Stop Date: 03/31/21 Status: OrderedLasix 80 mg oral tablet See Instructions, 1 tablet By Mouth Every Tuesday, , Tuesday and Tuesday. STOP TORSEMIDE, # 16 tablet, Refills 0, Tot. Refills 0, Maintenance, 04/24/21 14:02:00 EDT, Instructions Replace Required Details, Route to Pharmacy Electronically, [facility]... Start Date: 04/24/21 Status: OrderedMag-Ox 400 400 mg oral tablet 1 tablet = 400 mg, By Mouth, Daily, 0 Refills, Maintenance, 04/10/21 2:32:00 EDT, Tablet Start Date: 04/10/21 Status: OrderedMyfortic 180 mg oral delayed release tablet 3 tablet = 540 mg, By Mouth, 2 times a day, # 180 tablet, 1 Refills, Maintenance, 01/30/21 13:51:00 EDT, [facility], 165.1, cm, 01/30/21 7:26:00 EDT, Height, 80.9, kg, 01/26/21 20:14:00 EDT, Dry Weight Start Date: 01/30/21 Stop Date: 03/31/21 Status: OrderedRenvela 800 mg oral tablet 1 tablet = 800 mg, By Mouth, 3 times a day with meals, # 90 tablet, 0 Refills, Maintenance, 04/24/2114:03:00 EDT, Tablet, [facility], Partial fill upon patient [...]
--- OUTSIDE RECORDS SUMMARY | 2022-09-08 11:34 | XMS_ITS | Continuity of Care Document ---
:1990 Author Organization [facility] Address [address] [place] [address]- Care Team Providers Name Role Phone Bernadette De Los Santos MD Primary Care Physician Encounter [facility] Date(s): 02/23/22 - 03/25/22 [facility] [address], [place] [address] Attending Physician: Andrez River Admitting Physician: Andrez River Referring Physician: AdmtrAndrez Allergies, Adverse Reactions, Alerts No Known Allergies Immunizations Given and Recorded Vaccine Date Status Refusal Reason pneumococcal 23-valent vaccine1 12/30/14 Given pneumococcal 23-valent vaccine2 03/20/10 Given influenza virus vaccine, live3 12/30/14 Given Not Given Vaccine Date Status Refusal Reason influenza virus vaccine, inactivated 04/11/21 Not Given Patient Refuses 1Admin Note: [id number] Note: By [id number] Note: Dialysis Medications acetaminophen 325 mg oral tablet 650 mg, 2, tablet, By Mouth, Every 8 hours, PRN, # 100 tablet, Refills 1, Tot. Refills 1, Maintenance, Pain , Moderate, 11/10/21 10:05:00 EDT, [facility], Partial fill upon patient request if the presc... Start Date: 11/10/21 Status: Orderedapixaban 5 mg oral tablet 1 tablet = 5 mg, By Mouth, 2 times a day, # 60 tablet, 3 Refills, Maintenance, 05/02/21 20:58:00 EST, Tablet, [facility], Partial fill upon patient request if the prescription is for aschedule II opioid drug., 165, cm, 04/24/21 11:40... Start Date: 05/02/21 Stop Date: 08/30/21 Status: Orderedcalcitriol 0.25 mcg oral capsule 2 capsule = 0.5 mcg, By Mouth, Every Tuesday, Tuesday and Tuesday, # 26 capsule, 0 Refills, Maintenance, 04/24/21 14:01:00 EDT, Capsule, [facility], Partial fill upon patient request if the prescription is for a schedule II opioid micheal... Start Date: 04/24/21 Stop Date: 05/24/21 Status: Orderedcarvedilol 6.25 mg oral tablet 6.25 mg, 1, tablet, By Mouth, 2 times a day, # 60 tablet, Refills 5, Tot. Refills 5, Maintenance, 02/23/22 12:08:00 EDT, Route to Pharmacy Electronically, [id number], Partial fill uponpatient request if the prescription is for a sche... Start Date: 02/23/22 Status: Orderedcompression glove for left hand compression glove for left hand, See Instructions, # 1 each, Refills 0, Tot. Refills 0, Maintenance,wear daily to reduce and prevent edema Code R60.0 Duration: lifetime, 02/23/22 17:46:00 EDT, Supply Start Date: 02/23/22 Status: OrderedEnvarsus XR 4 mg oral tablet, extended release 3 tablet = 12 mg, By Mouth, Daily in AM, # 42 tablet, 0 Refills, Maintenance, 04/24/21 14:09:00 EDT,XR Tablet, [facility], Partial fill upon patient request if the prescription is fora schedule II opioid drug., 165, cm, 04/24/21 11:... Start Date: 04/24/21 Stop Date: 05/08/21 Status: OrderedFlonase 50 mcg/inh nasal spray 1 sprays, Nares, Both, 2 times a day, # 16 Gm, 3 Refills, Maintenance, 02/23/22 12:16:00 EDT, [id number], Partial fill upon patient request if the prescription is for a scheduleII opioid drug., 1 sprays Nares, Both 2 times a d... Start Date: 02/23/22 Status: Orderedisosorbide mononitrate 30 mg oral tablet, extended release 60 mg, 2, tablet, By Mouth, Daily, # 60 tablet, Refills 1, Tot. Refills 1, Maintenance, 01/30/21 13:54:00 EDT, Route to Pharmacy Electronically, [facility], Partial fill upon patient request if the prescription is for a schedule II opioi... Start Date: 01/30/21 Stop Date: 03/31/21 Status: Orderedknee height compression stockings at 15-20mmhg knee height compression stockings at 15-20mmhg, See Instructions, # 2 each, Refills 0, Tot. Refills 0, Maintenance, wear daily to reduce and prevent edema Code: R60.0 Duration: lifetime, 02/23/22 17:45:00 EDT, Supply Start Date: 02/23/22 Status: OrderedLasix 80 mg oral tablet See Instructions, 1 tablet By Mouth Every Tuesday, , Tuesday and Tuesday. STOP TORSEMIDE, # 16 tablet, Refills 0, Tot. Refills 0, Maintenance, 04/24/21 14:02:00 EDT, Instructions Replace Required Details, Route to Pharmacy Electronically, [facility]... Start Date: 04/24/21 Status: Orderedloratadine 10 mg oral tablet 10 mg, 1, tablet, By Mouth, Every other day, # 15 tablet, Refills 3, Tot. Refills 3, Maintenance, 02/23/22 12:15:00 EDT, Route to Pharmacy Electronically, [facility][id number], Partial fill uponpatient request if the prescription is for a sche... Start Date: 02/23/22 Status: OrderedMag-Ox 400 400 mg oral tablet 1 tablet = 400 mg, By Mouth, Daily, 0 Refills, Maintenance, 04/10/21 2:32:00 EDT, Tablet Start Date: 04/10/21 Status: Orderedmagnesium oxide 400 mg oral tablet 1 tablet = 400 mg, By Mouth, Daily, for 90 days, # 90 tablet, 3 Refills, Acute 02/18/23 12:14:00 EDT, 02/23/22 12:14:00 EDT, [id number], Partial fill upon patient request if the prescription is for a schedule II opioid drug., 165, cm,... Start Date: 02/23/22 Stop Date: 02/18/23 Status: OrderedMyfortic 180 mg oral delayed release tablet 3 tablet = 540 mg, By Mouth, 2 times a day, # 180 tablet, 1 Refills, Maintenance, 01/30/21 13:51:00 EDT, [facility], 165.1, cm, 01/30/21 7:26:00 EDT, Height, 80.9, kg, 01/26/21 20:14:00 EDT, Dry Weight Start Date: 01/30/21 Stop Date: 03/31/21 Status: OrderedoxyCODONE 5 mg oral tablet 5 mg, 1, tablet, By Mouth, Every 6 hours, PRN, for severe pain may obtain fewer, # 10 tablet, Refills 0, Tot. Refills 0, Maintenance, Pain , Severe, 02/23/22 12:24:00 EDT, Route to Pharmacy Electronically, [facility], Partial fill upo... Start Date: 02/23/22 Status: OrderedRenvela 800 mg oral tablet 1 tablet = 800 mg, By Mouth, 3 times a day with meals, # 90 tablet, 5 Refills, Maintenance, 02/24/2212:10:00 EDT, Tablet, [facility] #[id number], Partial fill upon patient request if the prescription is for a schedule II opioid drug., 165, cm, 0... Start Date: 02/23/22 Stop Date: 08/22/22 Status: OrderedtraMADol 50 mg oral tablet 1 tablet = 50 mg, By Mouth, Daily at bedtime, for severe pain may obtain fewer, # 7 tablet, 0 Refills, Maintenance, 11/10/21 11:27:00 EDT, [facility], Partial fill upon patient request if the prescription is for a schedule II opioid d... 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 Dilated Confirmed Active cardiomyopathy, EF 20-25% with grade 3 diastolic dysfunction FSGS (focal Confirmed Active segmental glomerulosclerosis) History of renal Confirmed 04/21/16 Active transplant Hypertension Confirmed Active Moderate Mitral Confirmed Active regurgitation 1Dr Gabi from urology placed catheter due to inability to place during surgery Social History Social History Type Response Smoking Status Current some day smoker entered on: 04/15/17 Sex Patient Care team information PersonnelName: Magali BRADLEY, Bernadette Sosa Address: Address: [address] [place] [address]
--- OUTSIDE RECORDS SUMMARY | 2022-09-08 11:34 | XMS_ITS | Continuity of Care Document ---
:1990 Author Organization [facility] Address Unavailable , Care Team Providers Name Role Phone Denice Booker MD Primary Care Physician Encounter [id number] Date(s): 01/16/21 - 02/15/21 [facility] Attending Physician: Andrez River Admitting Physician: Andrez River Referring Physician: Andrez River Allergies, Adverse Reactions, Alerts Substance Reaction Severity Status NKA Active Immunizations Given and Recorded Vaccine Date Status Refusal Reason pneumococcal 23-valent vaccine1 12/30/14 Given pneumococcal 23-valent vaccine2 03/20/10 Given influenza virus vaccine, live3 12/30/14 Given 1Admin Note: [id number] Note: By [id number] Note: Dialysis Medications amLODIPine 10 mg oral tablet 10 mg, 1, tablet, By Mouth, Daily, # 30 tablet, Refills 1, Tot. Refills 1, Maintenance, 01/30/21 13:52:00 EDT, Route to Pharmacy Electronically, [facility], Partial fill upon patient request if the prescription is for a schedule II opioi... Start Date: 01/30/21 Status: Orderedapixaban 2.5 mg oral tablet See Instructions, Please take 2 tablets 2 times a day x7 days followed by 1 tablet twice daily, # 60tablet, 1 Refills, Maintenance, 01/30/21 13:52:00 EDT, Tablet, [facility], Partial fill upon patient request if the prescription is for... Start Date: 01/30/21 Status: Orderedaspirin 81 mg oral delayed release tablet 81 mg, 1, tablet, By Mouth, Daily, # 90 tablet, Refills 0, Tot. Refills 0, Maintenance, 01/30/21 13:55:00 EDT, Route to Pharmacy Electronically, [facility], Partial fill upon patient request if the prescription is for a schedule II opioi... Start Date: 01/30/21 Status: Orderedatorvastatin 20 mg oral tablet 1 tablet = 20 mg, By Mouth, Daily, # 90 tablet, 0 Refills, Maintenance, 01/30/21 13:55:00 EDT, Tablet, [facility], Partial fill upon patient request if the prescription is for a schedule II opioid drug., 165.1, cm, 01/30/21 7:26:00 EDT,... Start Date: 01/30/21 Status: Orderedcarvedilol 12.5 mg oral tablet 12.5 mg, 1, tablet, By Mouth, Every 12 hours, # 60 tablet, Refills 1, Tot. Refills 1, Maintenance, 01/30/21 13:53:00 EDT, Route to Pharmacy Electronically, [facility], Partial fill upon patient request if the prescription is for a schedu... Start Date: 01/30/21 Status: Orderedcinacalcet 30 mg oral tablet 1 tablet = 30 mg, By Mouth, Daily, # 30 tablet, 1 Refills, Maintenance, 01/30/21 13:51:00 EDT, Tablet, [facility], Partial fill upon patient request if the prescription is for a schedule II opioid drug., 165.1, cm, 01/30/21 7:26:00 EDT,... Start Date: 01/30/21 Status: OrderedEnvarsus XR 1 mg oral tablet, extended release 1 tablet = 1 mg, By Mouth, 2 times a day, # 60 tablet, 1 Refills, Maintenance, 01/30/21 13:52:00 EDT, XR Tablet, [facility], Partial fill upon patient request if the prescription is for aschedule II opioid drug., 165.1, cm, 01/30/21 7:2... Start Date: 01/30/21 Status: OrderedEnvarsus XR 4 mg oral tablet, extended release 1 tablet = 4 mg, By Mouth, 2 times a day, # 60 tablet, 0 Refills, Maintenance, 01/30/21 13:52:00 EDT, XR Tablet, [facility], Partial fill upon patient request if the prescription is for aschedule II opioid drug., 165.1, cm, 01/30/21 7:2... Start Date: 01/30/21 Status: OrderedhydrALAZINE 25 mg oral tablet 25 mg, 1, tablet, By Mouth, 3 times a day, # 90 tablet, Refills 1, Tot. Refills 1, Maintenance, 01/30/21 13:54:00 EDT, Route to Pharmacy Electronically, [facility], Partial fill upon patient request if the prescription is for a schedule... Start Date: 01/30/21 Status: Orderedisosorbide mononitrate 30 mg oral tablet, extended release 30 mg, 1, tablet, By Mouth, Daily, # 30 tablet, Refills 1, Tot. Refills 1, Maintenance, 01/30/21 13:54:00 EDT, Route to Pharmacy Electronically, [facility], Partial fill upon patient request if the prescription is for a schedule II opioi... Start Date: 01/30/21 Stop Date: 03/31/21 Status: Orderedmagnesium oxide 400 mg oral tablet 1 tablet = 400 mg, By Mouth, Daily, for 30 days, # 30 tablet, 0 Refills, Acute 03/01/21 13:54:00 EDT, 01/30/21 13:54:00 EDT, Tablet, [facility], Partial fill upon patient request if the prescription is for a schedule II opioid drug., 165... Start Date: 01/30/21 Stop Date: 03/01/21 Status: OrderedMyfortic 180 mg oral delayed release tablet 3 tablet = 540 mg, By Mouth, 2 times a day, # 180 tablet, 1 Refills, Maintenance, 01/30/21 13:51:00 EDT, [facility], 165.1, cm, 01/30/21 7:26:00 EDT, Height, 80.9, kg, 01/26/21 20:14:00 EDT, Dry Weight Start Date: 01/30/21 Stop Date: 03/31/21 Status: Orderedsodium bicarbonate 650 mg oral tablet 1 tablet = 650 mg, By Mouth, 2 times a day, # 60 tablet, 0 Refills, Acute 05/30/21 10:00:00 EST, 01/30/21 13:51:00 EDT, Tablet, [facility], Partial fill upon patient request if the prescription is for a schedule II opioid drug., 165.1, c... Start Date: 01/30/21 Stop Date: 05/30/21 Status: Orderedtorsemide 20 mg oral tablet 2 tablet = 40 mg, By Mouth, Daily, # 60 tablet, 1 Refills, Maintenance, 01/30/21 13:55:00 EDT, Tablet, [facility], Partial fill upon patient request if the prescription is for a schedule II opioid drug., 165.1, cm, 01/30/21 7:26:00 EDT,... Start Date: 01/30/21 Status: OrderedTylenol 325 mg oral tablet 650 mg, 2, tablet, By Mouth, Every 6 hours, PRN, # 30 tablet, Refills 0, Tot. Refills 0, Acute 03/19/21 10:00:00 EDT, Pain , Mild, 01/30/21 13:50:00 EDT, Route to Pharmacy Electronically, [facility], Partial fill upon patient request if... Start Date: 01/30/21 Stop Date: 03/19/21 Status: Ordered Problem List Condition Effective Dates [...]
--- OUTSIDE RECORDS SUMMARY | 2022-09-08 11:34 | XMS_ITS | Continuity of Care Document ---
:1990 Author Organization [facility] Address [address] [place] [address]- Care Team Providers Name Role Phone Jhony BRADLEY, Ya Primary Care Physician Encounter [facility] Date(s): 03/25/21 - 04/24/21 [facility] [address], [place] [address] Attending Physician: AdmAndrez wilburn Admitting Physician: AdmAndrez wilburn Referring Physician: Admtr, Andrez Allergies, Adverse Reactions, Alerts Substance Reaction Severity Status NKA Active Immunizations Given and Recorded Vaccine Date Status Refusal Reason pneumococcal 23-valent vaccine1 12/30/14 Given pneumococcal 23-valent vaccine2 03/20/10 Given influenza virus vaccine, live3 12/30/14 Given Not Given Vaccine Date Status Refusal Reason influenza virus vaccine, inactivated 04/11/21 Not Given Patient Refuses 1Admin Note: [id number] Note: By [id number] Note: Dialysis Medications apixaban 5 mg oral tablet 1 tablet = 5 mg, By Mouth, 2 times a day, # 60 tablet, 3 Refills, Maintenance, 05/02/21 20:58:00 EST, Tablet, [facility], Partial fill upon patient request if the prescription is for aschedule II opioid drug., 165, cm, 04/24/21 11:40... Start Date: 05/02/21 Stop Date: 08/30/21 Status: Orderedapixaban 5 mg oral tablet 1 tablet = 5 mg, By Mouth, 2 times a day, for 30 days, # 60 tablet, 0 Refills, Hard Stop 05/02/21 20:58:37 EST, 03/08/21 12:23:00 EDT, Tablet, [facility], Partial fill upon patient request if the prescription is for a schedule II opioid... Start Date: 03/08/21 Stop Date: 05/02/21 Status: Orderedaspirin 81 mg oral tablet, chewable 81 mg, 1, tablet, By Mouth, Daily, # 30 tablet, Refills 0, Tot. Refills 0, Maintenance, 04/24/21 14:02:00 EDT, Route to Pharmacy Electronically, [facility], Partial fill upon patient request if the prescription is for a schedule II op... Start Date: 04/24/21 Stop Date: 05/24/21 Status: Orderedatorvastatin 20 mg oral tablet 1 tablet = 20 mg, By Mouth, Daily, # 90 tablet, 0 Refills, Maintenance, 01/30/21 13:55:00 EDT, Tablet, [facility], Partial fill upon patient request if the prescription is for a schedule II opioid drug., 165.1, cm, 01/30/21 7:26:00 EDT,... Start Date: 01/30/21 Status: Orderedcalcitriol 0.25 mcg oral capsule 2 capsule = 0.5 mcg, By Mouth, Every Tuesday, Tuesday and Tuesday, # 26 capsule, 0 Refills, Maintenance, 04/24/21 14:01:00 EDT, Capsule, [facility], Partial fill upon patient request if the prescription is for a schedule II opioid micheal... Start Date: 04/24/21 Stop Date: 05/24/21 Status: Orderedcarvedilol 12.5 mg oral tablet 12.5 mg, 1, tablet, By Mouth, Every 12 hours, # 60 tablet, Refills 1, Tot. Refills 1, Maintenance, 03/08/21 12:23:00 EDT, Route to Pharmacy Electronically, [facility], Partial fill upon patient request if the prescription is for a schedu... Start Date: 03/08/21 Status: OrderedEnvarsus XR 4 mg oral tablet, extended release 3 tablet = 12 mg, By Mouth, Daily in AM, # 42 tablet, 0 Refills, Maintenance, 04/24/21 14:09:00 EDT,XR Tablet, [facility], Partial fill upon patient request if the prescription is fora schedule II opioid drug., 165, cm, 04/24/21 11:... Start Date: 04/24/21 Stop Date: 05/08/21 Status: Orderedfluconazole 50 mg oral tablet 1 tablet = 50 mg, By Mouth, Daily, for 30 days, # 30 tablet, 0 Refills, Acute 05/24/21 14:02:00 EST,04/24/21 14:02:00 EDT, Tablet, [facility], Partial fill upon patient request if theprescription is for a schedule II opioid drug., 1... Start Date: 04/24/21 Stop Date: 05/24/21 Status: Orderedisosorbide mononitrate 30 mg oral tablet, extended release 60 mg, 2, tablet, By Mouth, Daily, # 60 tablet, Refills 1, Tot. Refills 1, Maintenance, 01/30/21 13:54:00 EDT, Route to Pharmacy Electronically, [facility], Partial fill upon patient request if the prescription is for a schedule II opioi... Start Date: 01/30/21 Stop Date: 03/31/21 Status: OrderedLasix 80 mg oral tablet See Instructions, 1 tablet By Mouth Every Tuesday, , Tuesday and Tuesday. STOP TORSEMIDE, # 16 tablet, Refills 0, Tot. Refills 0, Maintenance, 04/24/21 14:02:00 EDT, Instructions Replace Required Details, Route to Pharmacy Electronically, [facility]... Start Date: 04/24/21 Status: OrderedMag-Ox 400 400 mg oral tablet 1 tablet = 400 mg, By Mouth, Daily, 0 Refills, Maintenance, 04/10/21 2:32:00 EDT, Tablet Start Date: 04/10/21 Status: OrderedMyfortic 180 mg oral delayed release tablet 3 tablet = 540 mg, By Mouth, 2 times a day, # 180 tablet, 1 Refills, Maintenance, 01/30/21 13:51:00 EDT, [facility], 165.1, cm, 01/30/21 7:26:00 EDT, Height, 80.9, kg, 01/26/21 20:14:00 EDT, Dry Weight Start Date: 01/30/21 Stop Date: 03/31/21 Status: OrderedpredniSONE 20 mg oral tablet 3 tablet = 60 mg, By Mouth, Daily, for 30 days, # 90 tablet, 0 Refills, Acute 05/24/21 15:07:00 EST,04/24/21 15:07:00 EDT, Tablet, [facility], Partial fill upon patient request if theprescription is for a schedule II opioid drug., 1... Start Date: 04/24/21 Stop Date: 05/24/21 Status: OrderedRenvela 800 mg oral tablet 1 tablet = 800 mg, By Mouth, 3 times a day with meals, # 90 tablet, 0 Refills, Maintenance, 04/24/2114:03:00 EDT, Tablet, [facility], Partial fill upon patient request if the prescription is for a schedule II opioid drug., 165, cm, 1... Start Date: 04/24/21 Stop Date: 05/24/21 Status: Orderedsodium bicarbonate 650 mg oral tablet 1 tablet = 650 mg, By Mouth, 2 times a day, # 60 tablet, 0 Refills, Acute 05/30/21 10:00:00 EST, 01/30/21 13:51:00 EDT, Tablet, [facility], Partial fill upon patient request if the prescription is for a schedule II opioid drug., 165.1, c... Start Date: 01/30/21 Stop Date: 05/30/21 Status: Ordered Problem List Condition Effective Dates [...]
--- OUTSIDE RECORDS SUMMARY | 2022-09-08 11:34 | XMS_ITS | Continuity of Care Document ---
:1990 Author Organization [facility] Address [address] [place] [address]- Care Team Providers Name Role Phone Jhony BRADLEY, Denice Primary Care Physician Encounter [facility] Date(s): 10/05/21 - 11/04/21 [facility] [address], [place] [address] Allergies, Adverse Reactions, Alerts No Known Allergies Immunizations Given and Recorded Vaccine Date Status Refusal Reason pneumococcal 23-valent vaccine1 12/30/14 Given pneumococcal 23-valent vaccine2 03/20/10 Given influenza virus vaccine, live3 12/30/14 Given Not Given Vaccine Date Status Refusal Reason influenza virus vaccine, inactivated 04/11/21 Not Given Patient Refuses 1Admin Note: [email or web address] Note: By [email or web address] Note: Dialysis Medications apixaban 5 mg oral tablet 1 tablet = 5 mg, By Mouth, 2 times a day, # 60 tablet, 3 Refills, Maintenance, 05/02/21 20:58:00 EST, Tablet, [facility], Partial fill upon patient request if the prescription is for aschedule II opioid drug., 165, cm, 04/24/21 11:40... Start Date: 05/02/21 Stop Date: 08/30/21 Status: Orderedcalcitriol 0.25 mcg oral capsule 2 capsule = 0.5 mcg, By Mouth, Every Tuesday, Tuesday and Tuesday, # 26 capsule, 0 Refills, Maintenance, 04/24/21 14:01:00 EDT, Capsule, [facility], Partial fill upon patient request if the prescription is for a schedule II opioid micheal... Start Date: 04/24/21 Stop Date: 05/24/21 Status: Orderedcarvedilol 12.5 mg oral tablet 12.5 mg, 1, tablet, By Mouth, Every 12 hours, # 60 tablet, Refills 1, Tot. Refills 1, Maintenance, 03/08/21 12:23:00 EDT, Route to Pharmacy Electronically, [facility], Partial fill upon patient request if the prescription is for a schedu... Start Date: 03/08/21 Status: OrderedEnvarsus XR 4 mg oral tablet, extended release 3 tablet = 12 mg, By Mouth, Daily in AM, # 42 tablet, 0 Refills, Maintenance, 04/24/21 14:09:00 EDT,XR Tablet, [facility], Partial fill upon patient request if the prescription is fora schedule II opioid drug., 165, cm, 04/24/21 11:... Start Date: 04/24/21 Stop Date: 05/08/21 Status: Orderedisosorbide mononitrate 30 mg oral tablet, extended release 60 mg, 2, tablet, By Mouth, Daily, # 60 tablet, Refills 1, Tot. Refills 1, Maintenance, 01/30/21 13:54:00 EDT, Route to Pharmacy Electronically, [facility], Partial fill upon patient request if the prescription is for a schedule II opioi... Start Date: 01/30/21 Stop Date: 03/31/21 Status: OrderedLasix 80 mg oral tablet See Instructions, 1 tablet By Mouth Every Tuesday, , Tuesday and Tuesday. STOP TORSEMIDE, # 16 tablet, Refills 0, Tot. Refills 0, Maintenance, 04/24/21 14:02:00 EDT, Instructions Replace Required Details, Route to Pharmacy Electronically, [facility]... Start Date: 04/24/21 Status: OrderedMag-Ox 400 400 mg oral tablet 1 tablet = 400 mg, By Mouth, Daily, 0 Refills, Maintenance, 04/10/21 2:32:00 EDT, Tablet Start Date: 04/10/21 Status: OrderedMyfortic 180 mg oral delayed release tablet 3 tablet = 540 mg, By Mouth, 2 times a day, # 180 tablet, 1 Refills, Maintenance, 01/30/21 13:51:00 EDT, [facility], 165.1, cm, 01/30/21 7:26:00 EDT, Height, 80.9, kg, 01/26/21 20:14:00 EDT, Dry Weight Start Date: 01/30/21 Stop Date: 03/31/21 Status: OrderedRenvela 800 mg oral tablet 1 tablet = 800 mg, By Mouth, 3 times a day with meals, # 90 tablet, 0 Refills, Maintenance, 04/24/2114:03:00 EDT, Tablet, [facility], Partial fill upon patient [...]
--- OUTSIDE RECORDS SUMMARY | 2022-09-08 11:34 | XMS_ITS | Continuity of Care Document ---
:1990 Author Organization [facility] Address [address] [place] [address]- Care Team Providers Name Role Phone Not on Staff, PCP Primary Care Physician Unavailable Encounter [facility] [place] Date(s): 01/26/21 - 01/30/[address] [address] Discharge Disposition: A-D/C Home Attending Physician: Filomena Siddiqui MD Admitting Physician: Go Martinez MD Referring Physician: Arpan BRADLEY, Nadine Allergies, Adverse Reactions, Alerts Substance Reaction Severity Status NKA Active Immunizations Given and Recorded Vaccine Date Status Refusal Reason pneumococcal 23-valent vaccine1 12/30/14 Given pneumococcal 23-valent vaccine2 03/20/10 Given influenza virus vaccine, live3 12/30/14 Given 1Admin Note: [id number] Note: By [id number] Note: Dialysis Medications amLODIPine 10 mg oral tablet 10 mg, 1, tablet, By Mouth, Daily, # 30 tablet, Refills 1, Tot. Refills 1, Maintenance, 01/30/21 13:52:00 EDT, Route to Pharmacy Electronically, [facility], Partial fill upon patient request if the prescription is for a schedule II opioi... Start Date: 01/30/21 Status: Orderedapixaban 2.5 mg oral tablet See Instructions, Please take 2 tablets 2 times a day x7 days followed by 1 tablet twice daily, # 60tablet, 1 Refills, Maintenance, 01/30/21 13:52:00 EDT, Tablet, [facility], Partial fill upon patient request if the prescription is for... Start Date: 01/30/21 Status: Orderedaspirin 81 mg oral delayed release tablet 81 mg, 1, tablet, By Mouth, Daily, # 90 tablet, Refills 0, Tot. Refills 0, Maintenance, 01/30/21 13:55:00 EDT, Route to Pharmacy Electronically, [facility], Partial fill upon patient request if the prescription is for a schedule II opioi... Start Date: 01/30/21 Status: Orderedatorvastatin 20 mg oral tablet 1 tablet = 20 mg, By Mouth, Daily, # 90 tablet, 0 Refills, Maintenance, 01/30/21 13:55:00 EDT, Tablet, [facility], Partial fill upon patient request if the prescription is for a schedule II opioid drug., 165.1, cm, 01/30/21 7:26:00 EDT,... Start Date: 01/30/21 Status: Orderedcarvedilol 12.5 mg oral tablet 12.5 mg, Tablet, By Mouth, 01/29/21 20:00:00 EDT Start Date: 01/29/21 Stop Date: 01/30/21 Status: Completedcarvedilol 12.5 mg oral tablet 12.5 mg, 1, tablet, By Mouth, Every 12 hours, # 60 tablet, Refills 1, Tot. Refills 1, Maintenance, 01/30/21 13:53:00 EDT, Route to Pharmacy Electronically, [facility], Partial fill upon patient request if the prescription is for a schedu... Start Date: 01/30/21 Status: Orderedcinacalcet 30 mg oral tablet 1 tablet = 30 mg, By Mouth, Daily, # 30 tablet, 1 Refills, Maintenance, 01/30/21 13:51:00 EDT, Tablet, [facility], Partial fill upon patient request if the prescription is for a schedule II opioid drug., 165.1, cm, 01/30/21 7:26:00 EDT,... Start Date: 01/30/21 Status: OrderedEnvarsus XR 1 mg oral tablet, extended release 1 tablet = 1 mg, By Mouth, 2 times a day, # 60 tablet, 1 Refills, Maintenance, 01/30/21 13:52:00 EDT, XR Tablet, [facility], Partial fill upon patient request if the prescription is for aschedule II opioid drug., 165.1, cm, 01/30/21 7:2... Start Date: 01/30/21 Status: OrderedEnvarsus XR 4 mg oral tablet, extended release 1 tablet = 4 mg, By Mouth, 2 times a day, # 60 tablet, 0 Refills, Maintenance, 01/30/21 13:52:00 EDT, XR Tablet, [facility], Partial fill upon patient request if the prescription is for aschedule II opioid drug., 165.1, cm, 01/30/21 7:2... Start Date: 01/30/21 Status: OrderedhydrALAZINE 25 mg oral tablet 25 mg, Tablet, By Mouth, 01/29/21 21:00:00 EDT Start Date: 01/29/21 Stop Date: 01/30/21 Status: CompletedhydrALAZINE 25 mg oral tablet 25 mg, 1, tablet, By Mouth, 3 times a day, # 90 tablet, Refills 1, Tot. Refills 1, Maintenance, 01/30/21 13:54:00 EDT, Route to Pharmacy Electronically, [facility], Partial fill upon patient request if the prescription is for a schedule... Start Date: 01/30/21 Status: Orderedisosorbide mononitrate 30 mg oral tablet, extended release 30 mg, 1, tablet, By Mouth, Daily, # 30 tablet, Refills 1, Tot. Refills 1, Maintenance, 01/30/21 13:54:00 EDT, Route to Pharmacy Electronically, [facility], Partial fill upon patient request if the prescription is for a schedule II opioi... Start Date: 01/30/21 Stop Date: 03/31/21 Status: Orderedmagnesium oxide 400 mg oral tablet 1 tablet = 400 mg, By Mouth, Daily, for 30 days, # 30 tablet, 0 Refills, Acute 03/01/21 13:54:00 EDT, 01/30/21 13:54:00 EDT, Tablet, [facility], Partial fill upon patient request if the prescription is for a schedule II opioid drug., 165... Start Date: 01/30/21 Stop Date: 03/01/21 Status: OrderedMyfortic 180 mg oral delayed release tablet 3 tablet = 540 mg, By Mouth, 2 times a day, # 180 tablet, 1 Refills, Maintenance, 01/30/21 13:51:00 EDT, [facility], 165.1, cm, 01/30/21 7:26:00 EDT, Height, 80.9, kg, 01/26/21 20:14:00 EDT, Dry Weight Start Date: 01/30/21 Stop Date: 03/31/21 Status: OrderedoxyCODONE 5 mg oral tablet 5 mg, Tablet, By Mouth, Once, Routine, 01/30/21 12:00:00 EDT, Stop date 01/30/21 12:00:00 EDT Start Date: 01/30/21 Stop Date: 01/30/21 Status: CompletedpredniSONE 20 mg oral tablet See Instructions, TAKE 3 TAB ONCE DAILY X 3 DAYS THEN 2 TABS ONCE DAILY X3 DAYS then 1 tab once daily x3 days, # 18 tablet, 0 Refills, Acute 02/13/21 10:00:00 EDT, 01/30/21 14:43:00 EDT, Tablet, [facility], TAKE 3 TAB ONCE DAILY X 3 DAYS... Start Date: 01/30/21 Stop Date: 02/13/21 Status: Orderedsodium bicarbonate 650 mg oral tablet 1 tablet = 650 mg, By Mouth, 2 times a day, # 60 tablet, 0 Refills, Acute 05/30/21 10:00:00 EST, 01/30/21 13:51:00 EDT, Tablet, [facility], Partial fill upon patient request if the prescription is for a schedule II opioid drug., 165.1, c... Start Date: 01/30/21 Stop Date: 05/30/21 Status: Orderedtorsemide 20 mg oral tablet 2 tablet = 40 mg, By Mouth, Daily, # 60 tablet, 1 Refills, Maintenance, 01/30/21 13:55:00 EDT, [facility], Partial fill upon patient request if the prescription is for a schedule II opioid drug., 165.1, cm, 01/30/21 7:26:00 EDT,... Start Date: 01/30/21 Status: OrderedTylenol 325 mg oral tablet 650 mg, 2, tablet, By Mouth, Every 6 hours, PRN, # 30 tablet, Refills 0, Tot. Refills 0, Acute 03/19/21 10:00:00 EDT, Pain , Mild, 01/30/21 13:50:00 EDT, Route to Pharmacy Electronically, [facility], Partial fill upon patient [...] due to inability to place during surgery Results Orders for Microbiology Reports Name Date Urine Culture (URINE CULTURE) 01/27/21 Microbiology Reports TEST:Urine Culture STATUS:Auth (Verified) BODY SITE: SOURCE:URINE COLLECTED DATE/TIME:01/27/21 8:30 AMUrine Culture SPECIMEN DESCRIPTION : URINE CLEAN CATCH/MIDSTREAM SPECIAL REQUESTS : NONE CULTURE : <10,000 COL/ML REPORT STATUS : FINAL 01/28/2021 Vital Signs Most recent to oldest 1 2 3 [Reference Range]: Height 165.1 cm 165.1 cm 165.1 cm (01/30/21 7:26 AM) (01/29/21 11:40 PM) (01/29/21 7: 52 PM) Weight 82.2 kg 83.65 kg 80.9 kg (01/29/21 6:35 AM) (01/28/21 6:00 AM) (01/26/21 8:14 PM) Oxygen Saturation [94-100 %] 98 % 98 % 94 % (01/30/21 7:26 AM) (01/29/21 11:40 PM) (01/29/21 7: 52 PM) Pulse Rate [55-90 bpm] 87 bpm 96 bpm 87 bpm (01/30/21 8:58 AM) *H* (01/30/21 12:31 AM) (01/30/21 7:26 AM) Body Mass Index [18.5-24.99] 29.68 *H* (01/26/21 8:14 PM) Blood Pressure [90-138/55-84 143/94 mm Hg 136/92 mm Hg 134 /97 mm Hg mm Hg] *H* (01/30/21 7:26 AM) (01/30/21 4:04 AM) (01/30/21 8:58 AM) Respiratory Rate [16-30 17 br/min 18 br/min 18 br/mi n br/min] (01/30/21 12:05 PM) (01/30/21 7:26 AM) (01/29/21 11 :40 PM) Temperature [96.8-100.4 98.1 DegF 98.2 DegF 98.4 Deg F DegF] (01/30/21 7:26 AM) (01/29/21 11:40 PM) (01/29/21 7: 52 PM) Mode of Delivery (Oxygen) Room air Room air Room a ir (01/30/21 7:26 AM) (01/29/21 11:40 PM) (01/29/21 7: 52 PM) Blood pressure sites Arm, right Arm, right Arm, right (01/30/21 7:26 AM) (01/29/21 11:40 PM) (01/29/21 7: 52 PM) Temperature Route Oral Oral Oral (01/30/21 7:26 AM) (01/29/21 11:40 PM) (01/29/21 7: 52 PM) Dry Weight 80.9 kg (01/26/21 8:14 PM) Weight Obtained Via Standing scale (01/29/21 6:35 AM) Social History Social History Type Response Smoking Status Current some day smoker entered on: 04/15/17 Sex
--- OUTSIDE RECORDS SUMMARY | 2022-09-08 11:34 | XMS_ITS | Continuity of Care Document ---
:1990 Author Organization [facility] Address [address] [place] [address]- Care Team Providers Name Role Phone Denice Booker MD Primary Care Physician Encounter [facility] Date(s): 10/21/21 - 10/21/[address] [address] Discharge Disposition: A-D/C Home Attending Physician: Rena Haney MD Admitting Physician: Rena Haney MD Referring Physician: Rena Haney MD Allergies, Adverse Reactions, Alerts No Known Allergies Immunizations Given and Recorded Vaccine Date Status Refusal Reason pneumococcal 23-valent vaccine1 12/30/14 Given pneumococcal 23-valent vaccine2 03/20/10 Given influenza virus vaccine, live3 12/30/14 Given Not Given Vaccine Date Status Refusal Reason influenza virus vaccine, inactivated 04/11/21 Not Given Patient Refuses 1Admin Note: [id number] Note: By [email or web address] Note: Dialysis Medications apixaban 5 mg oral tablet 1 tablet = 5 mg, By Mouth, 2 times a day, # 60 tablet, 3 Refills, Maintenance, 05/02/21 20:58:00 EST, Tablet, [facility], Partial fill upon patient request if the prescription is for aschedule II opioid drug., 165, cm, 04/24/21 11:40... Start Date: 05/02/21 Stop Date: 08/30/21 Status: Orderedcalcitriol 0.25 mcg oral capsule 2 capsule = 0.5 mcg, By Mouth, Every Tuesday, Tuesday and Tuesday, # 26 capsule, 0 Refills, Maintenance, 04/24/21 14:01:00 EDT, Capsule, [facility], Partial fill upon patient request if the prescription is for a schedule II opioid micheal... Start Date: 04/24/21 Stop Date: 05/24/21 Status: Orderedcarvedilol 12.5 mg oral tablet 12.5 mg, 1, tablet, By Mouth, Every 12 hours, # 60 tablet, Refills 1, Tot. Refills 1, Maintenance, 03/08/21 12:23:00 EDT, Route to Pharmacy Electronically, [facility], Partial fill upon patient request if the prescription is for a schedu... Start Date: 03/08/21 Status: OrderedEnvarsus XR 4 mg oral tablet, extended release 3 tablet = 12 mg, By Mouth, Daily in AM, # 42 tablet, 0 Refills, Maintenance, 04/24/21 14:09:00 EDT,XR Tablet, [facility], Partial fill upon patient request if the prescription is fora schedule II opioid drug., 165, cm, 04/24/21 11:... Start Date: 04/24/21 Stop Date: 05/08/21 Status: Orderedisosorbide mononitrate 30 mg oral tablet, extended release 60 mg, 2, tablet, By Mouth, Daily, # 60 tablet, Refills 1, Tot. Refills 1, Maintenance, 01/30/21 13:54:00 EDT, Route to Pharmacy Electronically, [facility], Partial fill upon patient request if [...] [facility]... Start Date: 04/24/21 Status: OrderedMag-Ox 400 400 mg oral tablet 1 tablet = 400 mg, By Mouth, Daily, 0 Refills, Maintenance, 04/10/21 2:32:00 EDT, Tablet Start Date: 04/10/21 Status: OrderedMyfortic 180 mg oral delayed release tablet 3 tablet = 540 mg, By Mouth, 2 times a day, # 180 tablet, 1 Refills, Maintenance, 01/30/21 13:51:00 EDT, [facility], 165.1, cm, 01/30/21 7:26:00 EDT, Height, 80.9, kg, 01/26/21 20:14:00 EDT, Dry Weight Start Date: 01/30/21 Stop Date: 03/31/21 Status: OrderedoxyCODONE 5 mg oral tablet 5 mg, 1, tablet, By Mouth, Every 6 hours, PRN, # 12 tablet, Refills 0, Tot. Refills 0, Acute 10/23/21 12:16:00 EDT, for pain, 10/21/21 12:16:00 EDT, Print Requisition, Partial fill upon patient requestif the prescription is for a schedule II opioid d... Start Date: 10/21/21 Stop Date: 10/23/21 Status: OrderedRenvela 800 mg oral tablet 1 tablet = 800 mg, By Mouth, 3 times a day with meals, # 90 tablet, 0 Refills, Maintenance, 04/24/2114:03:00 EDT, Tablet, [facility], Partial fill upon patient [...] due to inability to place during surgery Vital Signs Most recent to oldest 1 2 3 [Reference Range]: Height 165 cm 165 cm (10/21/21 6:58 AM) (10/20/21 10:07 AM) Weight 78 kg 76.2 kg (10/21/21 6:58 AM) (10/20/21 10:07 AM) Oxygen Saturation [94-100 90 % 1 99 % 90 % 2 %] *L* (10/21/21 2:15 PM) *L* (10/21/21 2:30 PM) (10/21/21 2:00 PM ) Pulse Rate [55-90 bpm] 121 bpm *H* (10/21/21 6:58 AM) Body Mass Index 28.65 27.99 [18.5-24.99] *H* *H* (10/21/21 6:58 AM) (10/20/21 10:07 AM) Blood Pressure 120/75 mm Hg 133/102 mm Hg 132/96 mm Hg [90-138/55-84 mm Hg] (10/21/21 2:30 PM) (10/21/21 1:15 PM) (10/21/21 1 :00 PM) Respiratory Rate [16-30 24 br/min 16 br/min 25 br/mi n br/min] (10/21/21 2:00 PM) (10/21/21 1:30 PM) (10/21/21 1:15 P M) Temperature [96.8-100.4 97.1 DegF 98.7 DegF 98.3 Deg F DegF] (10/21/21 2:15 PM) (10/21/21 1:15 PM) (10/21/21 12:00 PM) Liters per Minute 2 L/min 1 L/min 1 L/min (10/21/21 2:15 PM) (10/21/21 1:45 PM) (10/21/21 1:30 P M) Mode of Delivery (Oxygen) Room air Nasal cannula Room a ir (10/21/21 2:30 PM) (10/21/21 2:15 PM) (10/21/21 2:00 P M) Blood pressure sites Arm, right (10/21/21 6:58 AM) Temperature Route Temporal Temporal Temporal (10/21/21 2:15 PM) (10/21/21 1:15 PM) (10/21/21 12:00 PM) Dry Weight 78 kg 76.2 kg (10/21/21 6:58 AM) (10/20/21 10:07 AM) Weight Obtained Via Patient/family stated (10/20/21 10:07 AM) Dry Weight Obtained Via Patient/family stated (10/20/21 10:07 AM) 1Result Comment: o2 Sat's 90-95 with occasional 85% RA but increases [id number] Comment: o2 Sat to 79 then back to high 80's -low 90's spontaneously Social History Social History Type Response Smoking Status Current some day smoker entered on: 04/15/17 Sex
--- OUTSIDE RECORDS SUMMARY | 2022-09-08 11:34 | XMS_ITS | Continuity of Care Document ---
:1990 Author Organization [facility] Address [address] [place] [address]- Care Team Providers Name Role Phone Jhony BRADLEY, Denice Primary Care Physician Encounter [facility] Date(s): 02/13/21 - 04/05/21 [facility] [address] [place] [id number]- Attending Physician: Gabrielle Blue MD Admitting Physician: Gabrielle Blue MD Referring Physician: Jhony BRADLEY (Internal Medicine) , Denice Allergies, Adverse Reactions, Alerts Substance Reaction Severity Status NKA Active Immunizations Given and Recorded Vaccine Date Status Refusal Reason pneumococcal 23-valent vaccine1 12/30/14 Given pneumococcal 23-valent vaccine2 03/20/10 Given influenza virus vaccine, live3 12/30/14 Given 1Admin Note: [id number] Note: By [email or web address] Note: Dialysis Medications amLODIPine 5 mg oral tablet 5 mg, 1, tablet, By Mouth, Daily, # 30 tablet, Refills 0, Tot. Refills 0, Maintenance, 03/08/21 12:25:00 EDT, Route to Pharmacy Electronically, [facility], Partial fill upon patient request if the prescription is for a schedule II opioid... Start Date: 03/08/21 Stop Date: 04/07/21 Status: Orderedapixaban 5 mg oral tablet 0.5, By Mouth, 2 times a day, # 15 capsule, 0 Refills, Maintenance, 03/08/21 12:23:00 EDT, Tablet, [facility], Partial fill upon patient request if the prescription is for a schedule II opioid drug., 165, cm, 03/08/21 8:48:00 EDT, Height... Start Date: 03/08/21 Stop Date: 05/02/21 Status: Orderedatorvastatin 20 mg oral tablet 1 tablet = 20 mg, By Mouth, Daily, # 90 tablet, 0 Refills, Maintenance, 01/30/21 13:55:00 EDT, Tablet, [facility], Partial fill upon patient request if the prescription is for a schedule II opioid drug., 165.1, cm, 01/30/21 7:26:00 EDT,... Start Date: 01/30/21 Status: Orderedcarvedilol 12.5 mg oral tablet 12.5 mg, 1, tablet, By Mouth, Every 12 hours, # 60 tablet, Refills 1, Tot. Refills 1, Maintenance, 03/08/21 12:23:00 EDT, Route to Pharmacy Electronically, [facility], Partial fill upon patient request if the prescription is for a schedu... Start Date: 03/08/21 Status: Orderedcinacalcet 30 mg oral tablet 1 tablet = 30 mg, By Mouth, Daily, # 30 tablet, 1 Refills, Maintenance, 01/30/21 13:51:00 EDT, Tablet, [facility], Partial fill upon patient request if the prescription is for a schedule II opioid drug., 165.1, cm, 01/30/21 7:26:00 EDT,... Start Date: 01/30/21 Status: OrderedEnvarsus XR 1 mg oral tablet, extended release 1 tablet = 1 mg, By Mouth, 2 times a day, # 60 tablet, 1 Refills, Maintenance, 01/30/21 13:52:00 EDT, XR Tablet, [facility] 3, Partial fill upon patient request if the prescription is for aschedule II opioid drug., 165.1, cm, 01/30/21 7:2... Start Date: 01/30/21 Status: OrderedEnvarsus XR 4 mg oral tablet, extended release 1 tablet = 4 mg, By Mouth, 2 times a day, # 60 tablet, 0 Refills, Maintenance, 01/30/21 13:52:00 EDT, XR Tablet, [facility] 3, Partial fill upon patient request if the prescription is for aschedule II opioid drug., 165.1, cm, 01/30/21 7:2... Start Date: 01/30/21 Status: OrderedhydrALAZINE 25 mg oral tablet 50 mg, 2, tablet, By Mouth, 3 times a day, # 90 tablet, Refills 1, Tot. Refills 1, Maintenance, 03/08/21 12:24:00 EDT, Route to Pharmacy Electronically, [facility], Partial fill upon patient request if the prescription is for a schedule... Start Date: 03/08/21 Status: Orderedisosorbide mononitrate 30 mg oral tablet, extended release 60 mg, 2, tablet, By Mouth, Daily, # 60 tablet, Refills 1, Tot. Refills 1, Maintenance, 01/30/21 13:54:00 EDT, Route to Pharmacy Electronically, [facility], Partial fill upon patient request if the prescription is for a schedule II opioi... Start Date: 01/30/21 Stop Date: 03/31/21 Status: OrderedMyfortic 180 mg oral delayed release tablet 3 tablet = 540 mg, By Mouth, 2 times a day, # 180 tablet, 1 Refills, Maintenance, 01/30/21 13:51:00 EDT, [facility] 3, 165.1, cm, 01/30/21 7:26:00 EDT, Height, 80.9, kg, 01/26/21 20:14:00 EDT, Dry Weight Start Date: 01/30/21 Stop Date: 03/31/21 Status: Orderedsodium bicarbonate 650 mg oral tablet 1 tablet = 650 mg, By Mouth, 2 times a day, # 60 tablet, 0 Refills, Acute 05/30/21 10:00:00 EST, 01/30/21 13:51:00 EDT, Tablet, [facility], Partial fill upon patient request if the prescription is for a schedule II opioid drug., 165.1, c... Start Date: 01/30/21 Stop Date: 05/30/21 Status: Orderedtorsemide 20 mg oral tablet 2 tablet = 40 mg, By Mouth, 2 times a day, # 120 tablet, 0 Refills, Maintenance, 03/25/21 12:27:00 EDT, Tablet, [facility], Order changed from 40mg daily to [...]
--- OUTSIDE RECORDS SUMMARY | 2022-09-08 11:34 | XMS_ITS | Continuity of Care Document ---
:1990 Author Organization [facility] Address [address] [place] [address]- Care Team Providers Name Role Phone Bernadette De Los Santos MD Primary Care Physician Encounter [facility] Date(s): 07/29/22 - 08/28/22 [facility] [address] [place] [address]- Attending Physician: Andrez River Admitting Physician: Andrez River Referring Physician: Andrez River Allergies, Adverse Reactions, Alerts No Known Allergies Immunizations Given and Recorded Vaccine Date Status Refusal Reason pneumococcal 23-valent vaccine1 12/30/14 Given pneumococcal 23-valent vaccine2 03/20/10 Given influenza virus vaccine, live3 12/30/14 Given Not Given Vaccine Date Status Refusal Reason influenza virus vaccine, inactivated 04/11/21 Not Given Patient Refuses 1Admin Note: [id number] Note: By [email or web address] Note: Dialysis Medications acetaminophen 325 mg oral tablet 650 mg, 2, tablet, By Mouth, Every 8 hours, PRN, # 100 tablet, Refills 1, Tot. Refills 1, Maintenance, Pain , Moderate, 11/10/21 10:05:00 EDT, [facility], Partial fill upon patient request if the presc... Start Date: 11/10/21 Status: Orderedapixaban 5 mg oral tablet 1 tablet = 5 mg, By Mouth, 2 times a day, # 60 tablet, 3 Refills, Maintenance, 05/02/21 20:58:00 EST, Tablet, [facility], Partial fill upon patient request if the prescription is for aschedule II opioid drug., 165, cm, 04/24/21 11:40... Start Date: 05/02/21 Stop Date: 08/30/21 Status: Orderedcalcitriol 0.25 mcg oral capsule 2 capsule = 0.5 mcg, By Mouth, Every Tuesday, Tuesday and Tuesday, # 26 capsule, 0 Refills, Maintenance, 04/24/21 14:01:00 EDT, Capsule, [facility], Partial fill upon patient request if the prescription is for a schedule II opioid micheal... Start Date: 04/24/21 Stop Date: 05/24/21 Status: Orderedcarvedilol 6.25 mg oral tablet 6.25 mg, 1, tablet, By Mouth, 2 times a day, # 60 tablet, Refills 5, Tot. Refills 5, Maintenance, 02/23/22 12:08:00 EDT, Route to Pharmacy Electronically, [id number], Partial fill uponpatient request if the prescription [...] 0 Refills, Maintenance, 04/24/21 14:09:00 EDT,XR Tablet, [facility], Partial fill upon patient request if the prescription is fora schedule II opioid drug., 165, cm, 04/24/21 11:... Start Date: 04/24/21 Stop Date: 05/08/21 Status: OrderedFlonase 50 mcg/inh nasal spray 1 sprays, Nares, Both, 2 times a day, # 16 Gm, 3 Refills, Maintenance, 02/23/22 12:16:00 EDT, [id number], Partial fill upon patient request if the prescription is for a scheduleII opioid drug., 1 sprays Nares, Both 2 times a d... Start Date: 02/23/22 Status: Orderedisosorbide mononitrate 30 mg oral tablet, extended release 60 mg, 2, tablet, By Mouth, Daily, # 60 tablet, Refills 1, Tot. Refills 1, Maintenance, 01/30/21 13:54:00 EDT, Route to Pharmacy Electronically, [facility], Partial fill upon patient request [...] Replace Required Details, Route to Pharmacy Electronically, [facility]... Start Date: 04/24/21 Status: Orderedloratadine 10 mg oral tablet 10 mg, 1, tablet, By Mouth, Every other day, # 15 tablet, Refills 3, Tot. Refills 3, Maintenance, 02/23/22 12:15:00 EDT, Route to Pharmacy Electronically, [facility] #[id number], Partial fill uponpatient request if the prescription [...] Acute 02/18/23 12:14:00 EDT, 02/23/22 12:14:00 EDT, [facility] #[id number], Partial fill upon patient request if the prescription is for a schedule II opioid drug., 165, cm,... Start Date: 02/23/22 Stop Date: 02/18/23 Status: OrderedMyfortic 180 mg oral delayed release tablet 3 tablet = 540 mg, By Mouth, 2 times a day, # 180 tablet, 1 Refills, Maintenance, 01/30/21 13:51:00 EDT, [facility] 3, 165.1, cm, 01/30/21 7:26:00 EDT, Height, 80.9, kg, 01/26/21 20:14:00 EDT, Dry Weight Start Date: 01/30/21 Stop Date: 03/31/21 Status: OrderedoxyCODONE 5 mg oral tablet 5 mg, 1, tablet, By Mouth, Every 6 hours, PRN, for severe pain may obtain fewer, # 10 tablet, Refills 0, Tot. Refills 0, Maintenance, Pain , Severe, 02/23/22 12:24:00 EDT, Route to Pharmacy Electronically, [facility], Partial fill upo... Start Date: 02/23/22 Status: OrderedRenvela 800 mg oral tablet 1 tablet = 800 mg, By Mouth, 3 times a day with meals, # 90 tablet, 5 Refills, Maintenance, 02/24/2212:10:00 EDT, Tablet, [facility] #[id number], Partial fill upon patient request if the prescription is for a schedule II opioid drug., 165, cm, 0... Start Date: 02/23/22 Stop Date: 08/22/22 Status: OrderedtraMADol 50 mg oral tablet 1 tablet = 50 mg, By Mouth, Daily at bedtime, for severe pain may obtain fewer, # 7 tablet, 0 Refills, Maintenance, 11/10/21 11:27:00 EDT, [facility], Partial fill upon patient request [...] on: 04/15/17 Sex Patient Care team information Care Team PersonnelName: Bernadette De Los Santos MD Position: [facility] Resident Member Role: PCP Address: Address: [address] [place] [address] [place] [address]- Name: Samina Ricketts RN Position: [facility] RN Member Role: Primary Care Nurse Name: Melany Barron Position: [facility] RN Supv Member Role: Primary Care Nurse Name: Amber Leonard RN Position: [facility] PCO RN Member Role: Primary Care Nurse Name: Jennifer Hay RN Position: [facility] RN Member Role: Primary Care Nurse Name: Matthew Cano RN Position: [facility] RN Supv Member Role: Primary Care Nurse Name: Andrey Brady MD Position: [facility] Renal MD Member Role: Lifetime Consulting Physician Address: Address: [address] [place] [address], [address] [facility] [place] [address]- Name: Hollie Lopez RN Position: [facility] RN Member Role: Primary Care Nurse Name: Ranjana Benavides Position: [facility] Outreach Member Role: Lifetime Consulting Physician Name: Laura Duran Position: [facility] RN Member Role: Primary Care Nurse Name: Gladys Cho Position: [facility] Accounting Representative Member Role: Primary Care Nurse Name: Melody Daliy NP Position: Reference Physician Member Role: Primary Care Nurse Address: Address: [address] [place] [id number]- Name: Sara Moreno RN Position: [facility] Hospital Alligator Shear Operator Member Role: Primary Care Nurse Name: Domitila Miller Position: [facility] Outreach Member Role: Lifetime Consulting Physician Name: Opal Jeffery RN Position: [facility] RN Member Role: Primary Care Nurse Name: Gallo Oneal MD Position: [facility] Renal MD Member Role: Lifetime Consulting Physician Address: Address: [address] [place] [address] [address] [facility] [place] [address]- [place] Name: Bigg Welsh RN Position: [facility] RN Member Role: Primary Care Nurse Name: Sun Mccain Position: [facility] Hospital Alligator Shear Operator Member Role: Primary Care Nurse Name: Greg Monroy MD Position: [facility] Renal MD Member Role: Lifetime Consulting Physician Address: Address: [address] [place] [address] [facility] [address] Name: Angela Spencer RN Position: [facility] RN Member Role: Primary Care Nurse Name: Ladi Mclean RN Position: [facility] Onco RN Member Role: Primary Care Nurse Name: Joe Will MD Position: [facility] Renal MD Member Role: Lifetime Consulting Physician Address: Address: [address] [place] [address] [facility] [place] [address]- Name: Adonis Nolan MD Position: [facility] Psychiatry MD Member Role: Lifetime Consulting Physician Address: Address: [address] [place] [address] Care Team Related PersonsName: MANOLO TOR Address: [address] [place] [address] Name: TOR WASHBURN Address: [address] [place] [address] Name: CHRISSIE CRAIG Address: [address] [place] [address] Name: TASHA CRAIG Address: [address] [place] [address]
--- OUTSIDE RECORDS SUMMARY | 2022-09-08 11:34 | XMS_ITS | Continuity of Care Document ---
:1990 Author Organization [facility] Address [address] [place] [address]- Care Team Providers Name Role Phone Jhony BRADLEY, Ya Primary Care Physician Encounter [facility] Date(s): 03/05/21 - 03/08/[address] [address] Discharge Disposition: A-D/C Home Attending Physician: Tawny BRADLEY, Willam Aranda Admitting Physician: Lakesha Wilson MD Referring Physician: Not on Staff, Referring MD Allergies, Adverse Reactions, Alerts Substance Reaction Severity Status NKA Active Immunizations Given and Recorded Vaccine Date Status Refusal Reason pneumococcal 23-valent vaccine1 12/30/14 Given pneumococcal 23-valent vaccine2 03/20/10 Given influenza virus vaccine, live3 12/30/14 Given 1Admin Note: [id number] Note: By [email or web address] Note: Dialysis Medications amLODIPine 10 mg oral tablet 10 mg, Tablet, By Mouth, 03/08/21 9:00:00 EDT Start Date: 03/08/21 Stop Date: 03/08/21 Status: CompletedamLODIPine 5 mg oral tablet 5 mg, 1, tablet, By Mouth, Daily, # 30 tablet, Refills 0, Tot. Refills 0, Maintenance, 03/08/21 12:25:00 EDT, Route to Pharmacy Electronically, [facility], Partial fill upon patient request if the prescription is for a schedule II opioid... Start Date: 03/08/21 Stop Date: 04/07/21 Status: Orderedapixaban 5 mg oral tablet 1 tablet = 5 mg, By Mouth, 2 times a day, # 60 tablet, 0 Refills, Maintenance, 03/08/21 12:23:00 EDT, Tablet, [facility], Partial fill upon patient request if the prescription is for a schedule II opioid drug., 165, cm, 03/08/21 8:48:00... Start Date: 03/08/21 Status: Orderedaspirin 81 mg oral delayed release tablet 81 mg, 1, tablet, By Mouth, Daily, # 90 tablet, Refills 0, Tot. Refills 0, Maintenance, 01/30/21 13:55:00 EDT, Route to Pharmacy Electronically, [facility], Partial fill upon patient request if the prescription is for a schedule II opioi... Start Date: 01/30/21 Status: Orderedatorvastatin 20 mg oral tablet 1 tablet = 20 mg, By Mouth, Daily, # 90 tablet, 0 Refills, Maintenance, 01/30/21 13:55:00 EDT, Tablet, [facility] 3, Partial fill upon patient request if the prescription is for a schedule II opioid drug., 165.1, cm, 01/30/21 7:26:00 EDT,... Start Date: 01/30/21 Status: Orderedcarvedilol 12.5 mg oral tablet 12.5 mg, 1, tablet, By Mouth, Every 12 hours, # 60 tablet, Refills 1, Tot. Refills 1, Maintenance, 03/08/21 12:23:00 EDT, Route to Pharmacy Electronically, [facility] 3, Partial fill upon patient request if the prescription is for a schedu... Start Date: 03/08/21 Status: Orderedcinacalcet 30 mg oral tablet 1 tablet = 30 mg, By Mouth, Daily, # 30 tablet, 1 Refills, Maintenance, 01/30/21 13:51:00 EDT, Tablet, [facility] 3, Partial fill upon patient request if the prescription is for a schedule II opioid drug., 165.1, cm, 01/30/21 7:26:00 EDT,... Start Date: 01/30/21 Status: OrderedCoreg 12.5 mg oral tablet 12.5 mg, Tablet, By Mouth, 03/08/21 9:00:00 EDT Start Date: 03/08/21 Stop Date: 03/08/21 Status: CompletedEnvarsus XR 1 mg oral tablet, extended release 1 tablet = 1 mg, By Mouth, 2 times a day, # 60 tablet, 1 Refills, Maintenance, 01/30/21 13:52:00 EDT, XR Tablet, [facility], Partial fill upon patient request if the prescription is for aschedule II opioid drug., 165.1, cm, 01/30/21 7:2... Start Date: 01/30/21 Status: OrderedEnvarsus XR 4 mg oral tablet, extended release 1 tablet = 4 mg, By Mouth, 2 times a day, # 60 tablet, 0 Refills, Maintenance, 01/30/21 13:52:00 EDT, XR Tablet, [facility], Partial fill upon patient request if the prescription is for aschedule II opioid drug., 165.1, cm, 01/30/21 7:2... Start Date: 01/30/21 Status: OrderedhydrALAZINE 10 mg oral tablet 10 mg, Tablet, By Mouth, 03/08/21 9:00:00 EDT Start Date: 03/08/21 Stop Date: 03/08/21 Status: CompletedhydrALAZINE 25 mg oral tablet 25 mg, 1, tablet, By Mouth, 3 times a day, # 90 tablet, Refills 1, Tot. Refills 1, Maintenance, 03/08/21 12:24:00 EDT, Route to Pharmacy Electronically, [facility], Partial fill upon patient request if the prescription is for a schedule... Start Date: 03/08/21 Status: Orderedisosorbide mononitrate 30 mg oral tablet, extended release 30 mg, 1, tablet, By Mouth, Daily, # 30 tablet, Refills 1, Tot. Refills 1, Maintenance, 01/30/21 13:54:00 EDT, Route to Pharmacy Electronically, [facility], Partial fill upon patient request if the prescription is for a schedule II opioi... Start Date: 01/30/21 Stop Date: 03/31/21 Status: OrderedMyfortic 180 mg oral delayed release tablet 3 tablet = 540 mg, By Mouth, 2 times a day, # 180 tablet, 1 Refills, Maintenance, 01/30/21 13:51:00 EDT, [facility], 165.1, cm, 01/30/21 7:26:00 EDT, Height, 80.9, kg, 01/26/21 20:14:00 EDT, Dry Weight Start Date: 01/30/21 Stop Date: 03/31/21 Status: Orderedsodium bicarbonate 650 mg oral tablet 1 tablet = 650 mg, By Mouth, 2 times a day, # 60 tablet, 0 Refills, Acute 05/30/21 10:00:00 EST, 01/30/21 13:51:00 EDT, Tablet, [facility], Partial fill upon patient request if the prescription is for a schedule II opioid drug., 165.1, c... Start Date: 01/30/21 Stop Date: 05/30/21 Status: Orderedtorsemide 20 mg oral tablet 2 tablet = 40 mg, By Mouth, Daily, # 60 tablet, 1 Refills, Maintenance, 03/08/21 12:24:00 EDT, Tablet, [facility], Partial fill upon patient request if the prescription is for a schedule II opioid drug., 165, cm, 03/08/21 8:48:00 EDT, He... Start Date: 03/08/21 Stop Date: 05/07/21 Status: OrderedTylenol 325 mg oral tablet 650 mg, 2, tablet, By Mouth, Every 6 hours, PRN, # 30 tablet, Refills 0, Tot. Refills 0, Acute 03/19/21 10:00:00 EDT, Pain , Mild, 01/30/21 13:50:00 EDT, Route to Pharmacy Electronically, [facility], Partial fill upon patient request if... [...] to inability to place during surgery Results Radiology Reports Exam Date Time Procedure Performing Provider Status 03/05/21 12:58 PM Chest Portable Kami Marrero; Amadou (Verified) Notes:(Chest Portable) Reason For Exam: Shortness of BreathRESULT: Chest Portable Chest Portable Hx of Present Illness: SOB X 2 days ago, orthopneic, BLE edema, HX CHF kidney transplant not on HD, denying fevers chills; Reason: Shortness of Breath; Clinical Question(s): CHF COMPARISON: February 24, 2021 FINDINGS: LINES AND TUBES: None. LUNGS AND PLEURA: Interstitial edema similar previously. Small left pleural effusion. No pneumothorax. HEART, MEDIASTINUM AND MAXINE: The heart is enlarged, stable Normal upper mediastinal and hilar contour. BONES AND SOFT TISSUES: No acute abnormality. IMPRESSION: CHF with cardiomegaly and pulmonary edema. WSN: [id number] Ordering Physician: Radha Uriarte Dictated By: David Davila MD Dictated Date/Time: 03/05/21 1:07 pm Reviewed By: David Davila MD Signed By: David Davila MD Signed Date/Time: 03/05/21 1:07 pm Transcribed By: DAISY Transcribed Date/Time: 03/05/21 1:04 pm Vital Signs Most recent to oldest 1 2 3 4 [Reference Range]: Height 165 cm 165 cm 165 cm (03/08/21 8:48 AM) (03/08/21 2:36 AM) (03/07/21 8:41 PM) Weight 84.5 kg 84.5 kg 83.3 kg (03/07/21 7:00 AM) (03/06/21 11:35 PM) (03/06/21 4:57 PM) Oxygen Saturation 97 % 100 % 98 % [94-100 %] (03/08/21 8:48 AM) (03/08/21 2:36 AM) (03/07/21 8:41 PM) Pulse Rate [55-90 91 bpm 80 bpm 81 bpm bpm] *H* (03/08/21 7:53 AM) (03/08/21 2:36 AM) (03/08/21 8:48 AM) Body Mass Index 31.04 30.52 [18.5-24.99] *>HHI* *>HHI* (03/06/21 11:35 PM) (03/05/21 10:43 PM) Blood Pressure 140/96 mm Hg 110/70 mm Hg 110/70 mm Hg 110/70 mm Hg [90-138/55-84 mm Hg] *H* (03/08/21 7:53 AM) (03/08/21 7:53 A M) (03/08/21 7:53 AM) (03/08/21 8:48 AM) Respiratory Rate 18 br/min 20 br/min 18 br/min [16-30 br/min] (03/08/21 8:48 AM) (03/08/21 2:36 AM) (03/07/21 8:41 PM ) Temperature 97.2 DegF 98.1 DegF 98.4 DegF [96.8-100.4 DegF] (03/08/21 8:48 AM) (03/08/21 2:36 AM) (03/07/21 8:41 PM) Liters per Minute 2 L/min 2 L/min 2 L/min (03/07/21 2:13 AM) (03/06/21 10:00 AM) (03/06/21 7:00 AM) Mode of Delivery Room air Room air Room air (Oxygen) (03/08/21 8:48 AM) (03/08/21 2:36 AM) (03/07/21 8:41 PM) Blood pressure sites Arm, right Arm, right Arm, right (03/08/21 8:48 AM) (03/08/21 2:36 AM) (03/07/21 8:41 PM) Temperature Route Temporal Temporal Temporal (03/08/21 8:48 AM) (03/08/21 2:36 AM) (03/07/21 8:41 PM) Dry Weight 83.1 kg (03/05/21 10:43 PM) Weight Obtained Via Bed scale Bed scale Standing scale (03/07/21 7:00 AM) (03/06/21 11:35 PM) (03/05/21 10:43 PM ) Social History Social History Type Response Smoking Status Current some day smoker entered on: 04/15/17 Sex
--- OUTSIDE RECORDS SUMMARY | 2022-09-08 11:34 | XMS_ITS | Continuity of Care Document ---
:1990 Author Organization [facility] Address [address] [place] [address]- Care Team Providers Name Role Phone Not on Staff, PCP Primary Care Physician Unavailable Encounter [facility] Date(s): 05/22/20 - 05/26/[address] [address] Discharge Disposition: A-D/C Home Attending Physician: Jesenia Granado MD Admitting Physician: Levy Jaimes MD Referring Physician: Levy Jaimes MD Allergies, Adverse Reactions, Alerts Substance Reaction Severity Status NKA Active Immunizations Given and Recorded Vaccine Date Status Refusal Reason pneumococcal 23-valent vaccine1 12/30/14 Given pneumococcal 23-valent vaccine2 03/20/10 Given influenza virus vaccine, live3 12/30/14 Given 1Admin Note: [id number] Note: By [email or web address] Note: Dialysis Medications labetalol 100 mg oral tablet 3 tablet = 300 mg, By Mouth, 3 times a day, # 270 tablet, 0 Refills, Maintenance, 05/26/20 14:41:00 EST, Tablet, [facility], Partial fill upon patient request [...] 05/26/20 14:41:00 EST, Route to Pharmacy Electronically, [facility], Partial fill upon patient request if the prescription is for a schedule... Start Date: 05/26/20 Stop Date: 06/25/20 Status: OrderedpredniSONE 10 mg oral tablet 6 tablet = 60 mg, By Mouth, Daily, for 10 days, # 60 tablet, 0 Refills, Acute 06/05/20 14:42:00 EST,05/26/20 14:42:00 EST, Tablet, [facility], 165, cm, 05/26/20 7:46:00 EST, Height, 83.25, kg, 05/22/20 19:33:00 EST, Dry Weight Start Date: 05/26/20 Stop Date: 06/05/20 Status: Orderedtacrolimus 1 mg oral capsule, extended release See Instructions, 5 mg By Mouth 2 times a day, # 30 tablet, 0 Refills, Maintenance, 02/10/17 11:31:06 EDT, ER Capsule, [facility] Start Date: 02/10/17 Status: OrderedTylenol [...] Exam Date Time Procedure Performing Provider Status 05/22/20 9:50 PM Foot Min 3 Views Right Leander Rivera; Amadou (Abhay ified) Notes:(Foot Min 3 Views Right) Reason For Exam: PainRESULT: Foot Min 3 Views Right Foot Min 3 Views Right, 3 views Reason: Pain; Clinical Question(s): Fracture COMPARISON: None. FINDINGS: No fractures or bone lesions. No arthritic changes. Normal soft tissues. IMPRESSION: No acute abnormality. WSN: [id number] Ordering Physician: Royal Cameron Dictated By: Dejan Gonzales MD Dictated Date/Time: 05/22/20 11:25 p Reviewed By: Dejan Gonzales MD Signed By: Dejan Gonzales MD Signed Date/Time: 05/22/20 11:25 pm Transcribed By: DAISY Transcribed Date/Time: 05/22/20 11:23 pm Vital Signs Most recent to oldest 1 2 3 [Reference Range]: Height 165 cm 165 cm 165 cm (05/26/20 6:58 PM) (05/26/20 6:45 PM) (05/26/20 5:5 9 PM) Weight 79.95 kg 80.95 kg 82.05 kg (05/25/20 5:36 AM) (05/24/20 5:48 AM) (05/23/20 6:5 9 AM) Oxygen Saturation [94-100 %] 97 % 98 % 98 % (05/26/20 3:00 PM) (05/26/20 7:46 AM) (05/26/20 12: 22 AM) Pulse Rate [55-90 bpm] 88 bpm 87 bpm 85 bpm (05/26/20 6:58 PM) (05/26/20 6:45 PM) (05/26/20 5:5 9 PM) Body Mass Index [18.5-24.99] 30.58 *>HHI* (05/22/20 7:17 PM) Blood Pressure [90-138/55-84 141/86 mm Hg 139/78 mm Hg 139 /92 mm Hg mm Hg] *H* *H* *H* (05/26/20 6:58 PM) (05/26/20 6:45 PM) (05/26/20 5:5 9 PM) Respiratory Rate [16-30 17 br/min 17 br/min 23 br/mi n br/min] (05/26/20 3:00 PM) (05/26/20 7:46 AM) (05/26/20 12: 22 AM) Temperature [96.8-100.4 DegF] 97.7 DegF 98.3 DegF 97 .4 DegF (05/26/20 3:00 PM) (05/26/20 7:46 AM) (05/26/20 12: 22 AM) Mode of Delivery (Oxygen) Room air Room air Room a ir (05/26/20 3:00 PM) (05/26/20 7:46 AM) (05/26/20 12: 22 AM) Blood pressure sites Arm, right Arm, right Arm, right (05/26/20 6:58 PM) (05/26/20 6:45 PM) (05/26/20 5:5 9 PM) Temperature Route Oral Oral Oral (05/26/20 3:00 PM) (05/26/20 7:46 AM) (05/26/20 12: 22 AM) Dry Weight 83.25 kg (05/22/20 7:17 PM) Weight Obtained Via Standing scale Standing scale Standing sca le (05/25/20 5:36 AM) (05/24/20 5:48 AM) (05/23/20 6:5 9 AM) Social History Social History Type Response Smoking Status Current some day smoker entered on: 04/15/17 Sex Male
--- OUTSIDE RECORDS SUMMARY | 2022-09-08 11:34 | XMS_ITS | Continuity of Care Document ---
:1990 Author Organization [facility] Address [address] [place] [id number]- Care Team Providers Name Role Phone Bernadette De Los Santos MD Primary Care Physician Encounter [facility] [place] Date(s): 11/27/21 - 12/27/21 [facility] [address] [place] [address]- Attending Physician: Andrez River Admitting Physician: Andrez River Referring Physician: Andrez River Allergies, Adverse Reactions, Alerts No Known Allergies Immunizations Given and Recorded Vaccine Date Status Refusal Reason pneumococcal 23-valent vaccine1 12/30/14 Given pneumococcal 23-valent vaccine2 03/20/10 Given influenza virus vaccine, live3 12/30/14 Given Not Given Vaccine Date Status Refusal Reason influenza virus vaccine, inactivated 04/11/21 Not Given Patient Refuses 1Admin Note: [id number] Note: By [id number] Note: Dialysis Medications acetaminophen 325 mg oral tablet 650 mg, 2, tablet, By Mouth, Every 8 hours, PRN, # 100 tablet, Refills 1, Tot. Refills 1, Maintenance, Pain , Moderate, 11/10/21 10:05:00 EDT, [facility] upon patient request if the presc... Start Date: 11/10/21 Status: Orderedapixaban 5 mg oral tablet 1 tablet = 5 mg, By Mouth, 2 times a day, # 60 tablet, 3 Refills, Maintenance, 05/02/21 20:58:00 EST, Tablet, [facility], Partial fill upon patient request if the prescription is for aschedule II opioid drug., 165, cm, 04/24/21 11:40... Start Date: 05/02/21 Stop Date: 08/30/21 Status: Orderedcalcitriol 0.25 mcg oral capsule 2 capsule = 0.5 mcg, By Mouth, Every Tuesday, Tuesday and Tuesday, # 26 capsule, 0 Refills, Maintenance, 04/24/21 14:01:00 EDT, Capsule, [facility], Partial fill upon patient request if the prescription is for a schedule II opioid micheal... Start Date: 04/24/21 Stop Date: 05/24/21 Status: Orderedcarvedilol 12.5 mg oral tablet 12.5 mg, 1, tablet, By Mouth, Every 12 hours, # 60 tablet, Refills 1, Tot. Refills 1, Maintenance, 03/08/21 12:23:00 EDT, Route to Pharmacy Electronically, [facility], Partial fill upon patient request if the prescription is for a schedu... Start Date: 03/08/21 Status: OrderedEnvarsus XR 4 mg oral tablet, extended release 3 tablet = 12 mg, By Mouth, Daily in AM, # 42 tablet, 0 Refills, Maintenance, 04/24/21 14:09:00 EDT,XR Tablet, [facility], Partial fill upon patient request if the prescription is fora schedule II opioid drug., 165, cm, 04/24/21 11:... Start Date: 04/24/21 Stop Date: 05/08/21 Status: Orderedisosorbide mononitrate 30 mg oral tablet, extended release 60 mg, 2, tablet, By Mouth, Daily, # 60 tablet, Refills 1, Tot. Refills 1, Maintenance, 01/30/21 13:54:00 EDT, Route to Pharmacy Electronically, [facility], Partial fill upon patient request if the prescription is for a schedule II opioi... Start Date: 01/30/21 Stop Date: 03/31/21 Status: OrderedLasix 80 mg oral tablet See Instructions, 1 tablet By Mouth Every Tuesday, , Tuesday and Tuesday. STOP TORSEMIDE, # 16 tablet, Refills 0, Tot. Refills 0, Maintenance, 04/24/21 14:02:00 EDT, Instructions Replace Required Details, Route to Pharmacy Electronically, [facility]... Start Date: 04/24/21 Status: OrderedMag-Ox 400 400 mg oral tablet 1 tablet = 400 mg, By Mouth, Daily, 0 Refills, Maintenance, 04/10/21 2:32:00 EDT, Tablet Start Date: 04/10/21 Status: OrderedMyfortic 180 mg oral delayed release tablet 3 tablet = 540 mg, By Mouth, 2 times a day, # 180 tablet, 1 Refills, Maintenance, 01/30/21 13:51:00 EDT, [facility], 165.1, cm, 01/30/21 7:26:00 EDT, Height, 80.9, kg, 01/26/21 20:14:00 EDT, Dry Weight Start Date: 01/30/21 Stop Date: 03/31/21 Status: OrderedRenvela 800 mg oral tablet 1 tablet = 800 mg, By Mouth, 3 times a day with meals, # 90 tablet, 0 Refills, Maintenance, 04/24/2114:03:00 EDT, Tablet, [facility], Partial fill upon patient request if the prescription is for a schedule II opioid drug., 165, cm, 1... Start Date: 04/24/21 Stop Date: 05/24/21 Status: OrderedtraMADol 50 mg oral tablet 1 tablet = 50 mg, By Mouth, Daily at bedtime, for severe pain may obtain fewer, # 7 tablet, 0 Refills, Maintenance, 11/10/21 11:27:00 EDT, [facility] upon patient request if [...]
--- OUTSIDE RECORDS SUMMARY | 2022-09-08 11:34 | XMS_ITS | Continuity of Care Document ---
:1990 Author Organization [facility] Address [address] [place] [address]- Care Team Providers Name Role Phone Jhony BRADLEY, Denice Primary Care Phys[place] [facility] [place]/21 [facility] [address] [place] [address]- Attending Physician: Andrez River Admitting Physician: Andrez River Referring Physician: AdmtrAndrez Allergies, Adverse Reactions, Alerts Substance Reaction Severity Status NKA Active Immunizations Given and Recorded Vaccine Date Status Refusal Reason pneumococcal 23-valent vaccine1 12/30/14 Given pneumococcal 23-valent vaccine2 03/20/10 Given influenza virus vaccine, live3 12/30/14 Given Not Given Vaccine Date Status Refusal Reason influenza virus vaccine, inactivated 04/11/21 Not Given Patient Refuses 1Admin Note: [id number] Note: By [email or web address] Note: Dialysis Medications apixaban 5 mg oral tablet 1 tablet = 5 mg, By Mouth, 2 times a day, # 60 tablet, 3 Refills, Maintenance, 05/02/21 20:58:00 EST, Tablet, [facility], Partial fill upon patient request if the prescription is for aschedule II opioid drug., 165, cm, 04/24/21 11:40... Start Date: 05/02/21 Stop Date: 08/30/21 Status: Orderedaspirin 81 mg oral tablet, chewable 81 mg, 1, tablet, By Mouth, Daily, # 30 tablet, Refills 0, Tot. Refills 0, Maintenance, 04/24/21 14:02:00 EDT, Route to Pharmacy Electronically, [facility], Partial fill upon patient request if the prescription is for a schedule II op... Start Date: 04/24/21 Stop Date: 05/24/21 Status: Orderedatorvastatin 20 mg oral tablet 1 tablet = 20 mg, By Mouth, Daily, # 90 tablet, 0 Refills, Maintenance, 01/30/21 13:55:00 EDT, Tablet, [facility], Partial fill upon patient request if the prescription is for a schedule II opioid drug., 165.1, cm, 01/30/21 7:26:00 EDT,... Start Date: 01/30/21 Status: Orderedcalcitriol 0.25 mcg oral capsule 2 capsule = 0.5 mcg, By Mouth, Every Tuesday, Tuesday and Tuesday, # 26 capsule, 0 Refills, Maintenance, 04/24/21 14:01:00 EDT, Capsule, [facility], Partial fill upon patient request if the prescription is for a schedule II opioid micheal... Start Date: 04/24/21 Stop Date: 05/24/21 Status: Orderedcarvedilol 12.5 mg oral tablet 12.5 mg, 1, tablet, By Mouth, Every 12 hours, # 60 tablet, Refills 1, Tot. Refills 1, Maintenance, 03/08/21 12:23:00 EDT, Route to Pharmacy Electronically, [facility], Partial fill upon patient request if the prescription is for a schedu... Start Date: 03/08/21 Status: OrderedEnvarsus XR 4 mg oral tablet, extended release 3 tablet = 12 mg, By Mouth, Daily in AM, # 42 tablet, 0 Refills, Maintenance, 04/24/21 14:09:00 EDT,XR Tablet, [facility], Partial fill upon patient request if the prescription is fora schedule II opioid drug., 165, cm, 04/24/21 11:... Start Date: 04/24/21 Stop Date: 05/08/21 Status: Orderedisosorbide mononitrate 30 mg oral tablet, extended release 60 mg, 2, tablet, By Mouth, Daily, # 60 tablet, Refills 1, Tot. Refills 1, Maintenance, 01/30/21 13:54:00 EDT, Route to Pharmacy Electronically, [facility], Partial fill upon patient request if the prescription is for a schedule II opioi... Start Date: 01/30/21 Stop Date: 03/31/21 Status: OrderedLasix 80 mg oral tablet See Instructions, 1 tablet By Mouth Every Tuesday, , Tuesday and Tuesday. STOP TORSEMIDE, # 16 tablet, Refills 0, Tot. Refills 0, Maintenance, 04/24/21 14:02:00 EDT, Instructions Replace Required Details, Route to Pharmacy Electronically, [facility]... Start Date: 04/24/21 Status: OrderedMag-Ox 400 400 mg oral tablet 1 tablet = 400 mg, By Mouth, Daily, 0 Refills, Maintenance, 04/10/21 2:32:00 EDT, Tablet Start Date: 04/10/21 Status: OrderedMyfortic 180 mg oral delayed release tablet 3 tablet = 540 mg, By Mouth, 2 times a day, # 180 tablet, 1 Refills, Maintenance, 01/30/21 13:51:00 EDT, [facility], 165.1, cm, 01/30/21 7:26:00 EDT, Height, 80.9, kg, 01/26/21 20:14:00 EDT, Dry Weight Start Date: 01/30/21 Stop Date: 03/31/21 Status: OrderedRenvela 800 mg oral tablet 1 tablet = 800 mg, By Mouth, 3 times a day with meals, # 90 tablet, 0 Refills, Maintenance, 04/24/2114:03:00 EDT, Tablet, [facility], Partial fill upon patient [...]
--- OUTSIDE RECORDS SUMMARY | 2022-09-08 11:34 | XMS_ITS | Continuity of Care Document ---
:1990 Author Organization [facility] Address [address] [place] [address]- Care Team Providers Name Role Phone Bernadette De Los Santos MD Primary Care Physician Encounter [facility] Date(s): 12/24/21 - 01/23/22 [facility] [address] [place], [place] [address] Attending Physician: Andrez River Admitting Physician: AdmtrAndrez Referring Physician: Admtr, Andrez Allergies, Adverse Reactions, Alerts No Known Allergies Immunizations Given and Recorded Vaccine Date Status Refusal Reason pneumococcal 23-valent vaccine1 12/30/14 Given pneumococcal 23-valent vaccine2 03/20/10 Given influenza virus vaccine, live3 12/30/14 Given Not Given Vaccine Date Status Refusal Reason influenza virus vaccine, inactivated 04/11/21 Not Given Patient Refuses 1Admin Note: [id number] Note: By [email or web address] Note: Dialysis Medications acetaminophen 325 mg oral tablet 650 mg, 2, tablet, By Mouth, Every 8 hours, PRN, # 100 tablet, Refills 1, Tot. Refills 1, Maintenance, Pain , Moderate, 11/10/21 10:05:00 EDT, [facility] fill upon patient request if the presc... Start Date: 11/10/21 Status: Orderedapixaban 5 mg oral tablet 1 tablet = 5 mg, By Mouth, 2 times a day, # 60 tablet, 3 Refills, Maintenance, 05/02/21 20:58:00 EST, Tablet, [facility], Partial fill upon patient request if the prescription is for aschedule II opioid drug., 165, cm, 04/24/21 11:40... Start Date: 05/02/21 Stop Date: 08/30/21 Status: Orderedcalcitriol 0.25 mcg oral capsule 2 capsule = 0.5 mcg, By Mouth, Every Tuesday, Tuesday and Tuesday, # 26 capsule, 0 Refills, Maintenance, 04/24/21 14:01:00 EDT, Capsule, [facility], Partial fill upon patient request if the prescription is for a schedule II opioid micheal... Start Date: 04/24/21 Stop Date: 05/24/21 Status: Orderedcarvedilol 12.5 mg oral tablet 12.5 mg, 1, tablet, By Mouth, Every 12 hours, # 60 tablet, Refills 1, Tot. Refills 1, Maintenance, 03/08/21 12:23:00 EDT, Route to Pharmacy Electronically, [facility], Partial fill upon patient request if the prescription is for a schedu... Start Date: 03/08/21 Status: OrderedEnvarsus XR 4 mg oral tablet, extended release 3 tablet = 12 mg, By Mouth, Daily in AM, # 42 tablet, 0 Refills, Maintenance, 04/24/21 14:09:00 EDT,XR Tablet, [facility], Partial fill upon patient request if the prescription is fora schedule II opioid drug., 165, cm, 04/24/21 11:... Start Date: 04/24/21 Stop Date: 05/08/21 Status: Orderedisosorbide mononitrate 30 mg oral tablet, extended release 60 mg, 2, tablet, By Mouth, Daily, # 60 tablet, Refills 1, Tot. Refills 1, Maintenance, 01/30/21 13:54:00 EDT, Route to Pharmacy Electronically, [facility], Partial fill upon patient request if [...] tablet, 1 Refills, Maintenance, 01/30/21 13:51:00 EDT, [facility], 165.1, cm, 01/30/21 7:26:00 EDT, Height, 80.9, kg, 01/26/21 20:14:00 EDT, Dry Weight Start Date: 01/30/21 Stop Date: 03/31/21 Status: OrderedRenvela 800 mg oral tablet 1 tablet = 800 mg, By Mouth, 3 times a day with meals, # 90 tablet, 0 Refills, Maintenance, 04/24/2114:03:00 EDT, Tablet, [facility], Partial fill upon patient request if the prescription is for a schedule II opioid drug., 165, cm, 1... Start Date: 04/24/21 Stop Date: 05/24/21 Status: OrderedtraMADol 50 mg oral tablet 1 tablet = 50 mg, By Mouth, Daily at bedtime, for severe pain may obtain fewer, # 7 tablet, 0 Refills, Maintenance, 11/10/21 11:27:00 EDT, [facility] upon patient request if [...]
--- OUTSIDE RECORDS SUMMARY | 2022-09-08 11:34 | XMS_ITS | Continuity of Care Document ---
:1990 Author Organization [facility] Address [address] [place] [address]- Care Team Providers Name Role Phone Jhony BRADLEY, Denice Primary Care Physician Encounter [facility] [place] Date(s): 04/02/21 - 05/02/21 [facility] [address] [place] [id number]- Attending Physician: Andrez River Admitting Physician: Andrez [...] 04/11/21 Not Given Patient Refuses 1Admin Note: [id number] Note: By [id number] Note: Dialysis Medications apixaban 5 mg oral [...] Maintenance, 01/30/21 13:55:00 EDT, Tablet, [facility], Partial fill upon patient request if the prescription is for a schedule II opioid drug., 165.1, cm, 01/30/21 7:26:00 EDT,... Start Date: 01/30/21 Status: Orderedcalcitriol 0.25 mcg oral capsule 2 capsule = 0.5 mcg, By Mouth, Every Tuesday, Tuesday and Tuesday, # 26 capsule, 0 Refills, Maintenance, 04/24/21 14:01:00 EDT, Capsule, [facility], Partial fill upon patient request if the prescription is for a schedule II opioid micheal... Start Date: 04/24/21 Stop Date: 05/24/21 Status: Orderedcarvedilol 12.5 mg oral tablet 12.5 mg, 1, tablet, By Mouth, Every 12 hours, # 60 tablet, Refills 1, Tot. Refills 1, Maintenance, 03/08/21 12:23:00 EDT, Route to Pharmacy Electronically, [facility], Partial fill upon patient request if the prescription is for a schedu... Start Date: 03/08/21 Status: OrderedEnvarsus XR 4 mg oral tablet, extended release 3 tablet = 12 mg, By Mouth, Daily in AM, # 42 tablet, 0 Refills, Maintenance, 04/24/21 14:09:00 EDT,XR Tablet, [facility], Partial fill upon patient request if the prescription is fora schedule II opioid drug., 165, cm, 04/24/21 11:... Start Date: 04/24/21 Stop Date: 05/08/21 Status: Orderedfluconazole 50 mg oral tablet 1 tablet = 50 mg, By Mouth, Daily, for 30 days, # 30 tablet, 0 Refills, Acute 05/24/21 14:02:00 EST,04/24/21 14:02:00 EDT, Tablet, [facility], Partial fill upon patient request if theprescription is for a schedule II opioid drug., 1... Start Date: 04/24/21 Stop Date: 05/24/21 Status: Orderedisosorbide mononitrate 30 mg oral tablet, extended release 60 mg, 2, tablet, By Mouth, Daily, # 60 tablet, Refills 1, Tot. Refills 1, Maintenance, 01/30/21 13:54:00 EDT, Route to Pharmacy Electronically, [facility], Partial fill upon patient request if [...] Refills, Maintenance, 01/30/21 13:51:00 EDT, [facility], 165.1, cm, 01/30/21 7:26:00 EDT, Height, 80.9, kg, 01/26/21 20:14:00 EDT, Dry Weight Start Date: 01/30/21 Stop Date: 03/31/21 Status: OrderedpredniSONE 20 mg oral tablet 3 tablet = 60 mg, By Mouth, Daily, for 30 days, # 90 tablet, 0 Refills, Acute 05/24/21 15:07:00 EST,04/24/21 15:07:00 EDT, Tablet, [facility], Partial [...] 05/30/21 10:00:00 EST, 01/30/21 13:51:00 EDT, Tablet, [facility], Partial fill upon patient [...]
--- OUTSIDE RECORDS SUMMARY | 2022-09-08 11:34 | XMS_ITS | Continuity of Care Document ---
:1990 Author Organization [facility] Address [address] [place] [address]- Care Team Providers Name Role Phone Jhony BRADLEY, Ya Primary Care Physician Encounter [facility] Date(s): 04/09/21 - 04/24/[address] [address] Encounter Diagnosis CHF exacerbation (Final) - 04/10/21 Discharge Disposition: A-D/C Home Attending Physician: Modesto Jarvis MD Admitting Physician: Royal Cameron MD Referring Physician: Not on Staff, Referring MD Allergies, Adverse Reactions, Alerts Substance Reaction Severity Status NKA Active Immunizations Given and Recorded Vaccine Date Status Refusal Reason pneumococcal 23-valent vaccine1 12/30/14 Given pneumococcal 23-valent vaccine2 03/20/10 Given influenza virus vaccine, live3 12/30/14 Given Not Given Vaccine Date Status Refusal Reason influenza virus vaccine, inactivated 04/11/21 Not Given Patient Refuses 1Admin Note: [id number] Note: By [id number] Note: Dialysis Medications apixaban 5 mg oral tablet 1 tablet = 5 mg, By Mouth, 2 times a day, # 60 tablet, 3 Refills, Maintenance, 05/02/21 20:58:00 EST, Tablet, [facility], Partial fill upon patient request if the prescription is for aschedule II opioid drug., 165, cm, 04/24/21 11:40... Start Date: 05/02/21 Stop Date: 08/30/21 Status: Orderedapixaban 5 mg oral tablet 1 tablet = 5 mg, By Mouth, 2 times a day, for 30 days, # 60 tablet, 0 Refills, Hard Stop 05/02/21 20:58:37 EST, 03/08/21 12:23:00 EDT, Tablet, [facility], Partial fill upon patient request if the prescription is for a schedule II opioid... Start Date: 03/08/21 Stop Date: 05/02/21 Status: Orderedaspirin 81 mg oral tablet, chewable 81 mg, 1, tablet, By Mouth, Daily, # 30 tablet, Refills 0, Tot. Refills 0, Maintenance, 04/24/21 14:02:00 EDT, Route to Pharmacy Electronically, [facility], Partial fill upon patient request if the prescription is for a schedule II op... Start Date: 04/24/21 Stop Date: 05/24/21 Status: Orderedatorvastatin 20 mg oral tablet 1 tablet = 20 mg, By Mouth, Daily, # 90 tablet, 0 Refills, Maintenance, 01/30/21 13:55:00 EDT, Tablet, [facility], Partial fill upon patient request if the prescription is for a schedule II opioid drug., 165.1, cm, 01/30/21 7:26:00 EDT,... Start Date: 01/30/21 Status: Orderedcalcitriol 0.25 mcg oral capsule 2 capsule = 0.5 mcg, By Mouth, Every Tuesday, Tuesday and Tuesday, # 26 capsule, 0 Refills, Maintenance, 04/24/21 14:01:00 EDT, Capsule, [facility], Partial fill upon patient request if the prescription is for a schedule II opioid micheal... Start Date: 04/24/21 Stop Date: 05/24/21 Status: Orderedcarvedilol 12.5 mg oral tablet 12.5 mg, 1, tablet, By Mouth, Every 12 hours, # 60 tablet, Refills 1, Tot. Refills 1, Maintenance, 03/08/21 12:23:00 EDT, Route to Pharmacy Electronically, [facility], Partial fill upon patient request if the prescription is for a schedu... Start Date: 03/08/21 Status: OrderedEnvarsus XR 4 mg oral tablet, extended release 3 tablet = 12 mg, By Mouth, Daily in AM, # 42 tablet, 0 Refills, Maintenance, 04/24/21 14:09:00 EDT,XR Tablet, [facility], Partial fill upon patient request if the prescription is fora schedule II opioid drug., 165, cm, 04/24/21 11:... Start Date: 04/24/21 Stop Date: 05/08/21 Status: Orderedfluconazole 50 mg oral tablet 1 tablet = 50 mg, By Mouth, Daily, for 30 days, # 30 tablet, 0 Refills, Acute 05/24/21 14:02:00 EST,04/24/21 14:02:00 EDT, Tablet, [facility], Partial fill upon patient request if theprescription is for a schedule II opioid drug., 1... Start Date: 04/24/21 Stop Date: 05/24/21 Status: OrderedHYDROmorphone Inj 0.5 mg, Injection, IV Push Slowly, Every 4 hours, PRN for Pain , Severe, Routine, 04/20/21 10:26:00 EDT Start Date: 04/20/21 Stop Date: 04/25/21 Status: Discontinuedisosorbide mononitrate 30 mg oral tablet, extended release 60 mg, 2, tablet, By Mouth, Daily, # 60 tablet, Refills 1, Tot. Refills 1, Maintenance, 01/30/21 13:54:00 EDT, Route to Pharmacy Electronically, [facility], Partial fill upon patient [...] tablet, 1 Refills, Maintenance, 01/30/21 13:51:00 EDT, [facility], 165.1, cm, 01/30/21 7:26:00 EDT, Height, 80.9, kg, 01/26/21 20:14:00 EDT, Dry Weight Start Date: 01/30/21 Stop Date: 03/31/21 Status: OrderedpredniSONE 20 mg oral tablet 3 tablet = 60 mg, By Mouth, Daily, for 30 days, # 90 tablet, 0 Refills, Acute 05/24/21 15:07:00 EST,04/24/21 15:07:00 EDT, Tablet, [facility], Partial fill upon patient request if theprescription is for a schedule II opioid drug., 1... Start Date: 04/24/21 Stop Date: 05/24/21 Status: OrderedRenvela 800 mg oral tablet 1 tablet = 800 mg, By Mouth, 3 times a day with meals, # 90 tablet, 0 Refills, Maintenance, 04/24/2114:03:00 EDT, Tablet, [facility], Partial fill upon patient request if the prescription is for a schedule II opioid drug., 165, cm, 1... Start Date: 04/24/21 Stop Date: 05/24/21 Status: Orderedsodium bicarbonate 650 mg oral tablet 1 tablet = 650 mg, By Mouth, 2 times a day, # 60 tablet, 0 Refills, Acute 05/30/21 10:00:00 EST, 01/30/21 13:51:00 EDT, Tablet, [facility], Partial fill upon [...] Exam Date Time Procedure Performing Provider Status 04/09/21 11:17 PM Chest Portable Rosio Be; Amadou (Gunnar manning) Notes:(Chest Portable) Reason For Exam: CHFRESULT: Chest Portable Chest Portable HX OF PRESENT ILLNESS: pt comes in with chest pain and sob. given nitro and asa in route. feels a little better. BP also high. states going up stairs and developed sob. has kidney transplant hx. old fistula left arm; Reason: CHF; Clinical Question(s): CHF / CHF COMPARISON: 03/05/2021 FINDINGS: LINES AND TUBES: None. LUNGS AND PLEURA: The central pulmonary vasculature is prominent and indistinct. Mild diffuse interstitial prominence. No pleural effusion. No pneumothorax. HEART, MEDIASTINUM AND MAXINE: Moderate prominence of the cardiac silhouette, unchanged. Normal mediastinal and hilar contour. BONES AND SOFT TISSUES: No acute abnormality. IMPRESSION: Volume overload/interstitial pulmonary edema. WSN: [id number] Ordering Physician: Maryann Yan Dictated By: Jeremiah Vallejo MD Dictated Date/Time: 04/09/21 11:20 p Reviewed By: Jeremiah Vallejo MD Signed By: Jeremiah Vallejo MD Signed Date/Time: 04/09/21 11:20 pm Transcribed By: DAISY Transcribed Date/Time: 04/09/21 11:19 pm Vital Signs Most recent to oldest 1 2 3 [Reference Range]: Height 165 cm 165 cm 165 cm (04/24/21 11:40 AM) (04/23/21 8:50 AM) (04/23/21 2: 57 AM) Weight 73.6 kg 76.9 kg 72.8 kg (04/24/21 5:48 AM) (04/23/21 2:57 AM) (04/21/21 2:4 5 AM) Oxygen Saturation [94-100 %] 100 % 98 % 97 % (04/24/21 11:40 AM) (04/24/21 3:00 AM) (04/23/21 8: 00 PM) Pulse Rate [55-90 bpm] 105 bpm 84 bpm 87 bpm *H* (04/24/21 3:00 AM) (04/23/21 8:00 PM) (04/24/21 11:40 AM) Body Mass Index [18.5-24.99] 28.25 26.74 26. 45 *H* *H* *H* (04/23/21 2:57 AM) (04/21/21 2:45 AM) (04/20/21 2:2 3 AM) Blood Pressure [90-138/55-84 124/89 mm Hg 140/90 mm Hg 122 /90 mm Hg mm Hg] (04/24/21 11:40 AM) *H* (04/23/21 8:00 PM) (04/24/21 3:00 AM) Respiratory Rate [16-30 18 br/min 18 br/min 18 br/mi n br/min] (04/24/21 1:30 PM) (04/24/21 1:00 PM) (04/24/21 6:0 1 AM) Temperature [96.8-100.4 98.6 DegF 98 DegF 97.8 Deg F DegF] (04/24/21 3:00 AM) (04/23/21 8:00 PM) (04/23/21 8:5 0 AM) Liters per Minute 2 L/min 2 L/min 2 L/min (04/21/21 8:00 AM) (04/16/21 8:09 AM) (04/13/21 6 :00 AM) Mode of Delivery (Oxygen) Room air Room air Room a ir (04/24/21 11:40 AM) (04/24/21 3:00 AM) (04/23/21 8: 00 PM) Blood pressure sites Arm, right Arm, right Arm, right (04/24/21 11:40 AM) (04/24/21 3:00 AM) (04/23/21 8: 00 PM) Temperature Route Oral Oral Oral (04/24/21 3:00 AM) (04/23/21 8:00 PM) (04/23/21 8:5 0 AM) Dry Weight 80.6 kg (04/10/21 2:51 AM) Weight Obtained Via Standing scale Bed scale Bed scale (04/24/21 5:48 AM) (04/23/21 2:57 AM) (04/21/21 2:4 5 AM) Social History Social History Type Response Smoking Status Current some day smoker entered on: 04/15/17 Sex
--- OUTSIDE RECORDS SUMMARY | 2022-09-08 11:34 | XMS_ITS | Continuity of Care Document ---
:1990 Author Organization [facility] Address [address] [place] [address]- Care Team Providers Name Role Phone Bernadette De Los Santos MD Primary Care Physician Encounter [facility] Date(s): 11/12/21 - 01/23/22 [facility] [address], [place] [address] Attending Physician: Not on Staff, Attending MD Allergies, Adverse Reactions, Alerts No Known Allergies Immunizations Given and Recorded Vaccine Date Status Refusal Reason pneumococcal 23-valent vaccine1 12/30/14 Given pneumococcal 23-valent vaccine2 03/20/10 Given influenza virus vaccine, live3 12/30/14 Given Not Given Vaccine Date Status Refusal Reason influenza virus vaccine, inactivated 04/11/21 Not Given Patient Refuses 1Admin Note: [id number] Note: By [id number] Note: Dialysis Medications acetaminophen 325 mg oral tablet 650 mg, 2, tablet, By Mouth, Every 8 hours, PRN, # 100 tablet, Refills 1, Tot. Refills 1, Maintenance, Pain , Moderate, 11/10/21 10:05:00 EDT, [facility] fill upon patient request if the presc... Start Date: 11/10/21 Status: Orderedapixaban 5 mg oral tablet 1 tablet = 5 mg, By Mouth, 2 times a day, # 60 tablet, 3 Refills, Maintenance, 05/02/21 20:58:00 EST, Tablet, [facility], Partial fill upon patient request if the prescription is for aschedule II opioid drug., 165, cm, 04/24/21 11:40... Start Date: 05/02/21 Stop Date: 08/30/21 Status: Orderedcalcitriol 0.25 mcg oral capsule 2 capsule = 0.5 mcg, By Mouth, Every Tuesday, Tuesday and Tuesday, # 26 capsule, 0 Refills, Maintenance, 04/24/21 14:01:00 EDT, Capsule, [facility], Partial fill upon patient request if the prescription is for a schedule II opioid micheal... Start Date: 04/24/21 Stop Date: 05/24/21 Status: Orderedcarvedilol 12.5 mg oral tablet 12.5 mg, 1, tablet, By Mouth, Every 12 hours, # 60 tablet, Refills 1, Tot. Refills 1, Maintenance, 03/08/21 12:23:00 EDT, Route to Pharmacy Electronically, [facility], Partial fill upon patient request if the prescription is for a schedu... Start Date: 03/08/21 Status: OrderedEnvarsus XR 4 mg oral tablet, extended release 3 tablet = 12 mg, By Mouth, Daily in AM, # 42 tablet, 0 Refills, Maintenance, 04/24/21 14:09:00 EDT,XR Tablet, [facility], Partial fill upon patient request if the prescription is fora schedule II opioid drug., 165, cm, 04/24/21 11:... Start Date: 04/24/21 Stop Date: 05/08/21 Status: Orderedisosorbide mononitrate 30 mg oral tablet, extended release 60 mg, 2, tablet, By Mouth, Daily, # 60 tablet, Refills 1, Tot. Refills 1, Maintenance, 01/30/21 13:54:00 EDT, Route to Pharmacy Electronically, [facility], Partial fill upon patient request if the prescription is for a schedule II opioi... Start Date: 01/30/21 Stop Date: 03/31/21 Status: OrderedLasix 80 mg oral tablet See Instructions, 1 tablet By Mouth Every Tuesday, , Tuesday and Tuesday. STOP TORSEMIDE, # 16 tablet, Refills 0, Tot. Refills 0, Maintenance, 04/24/21 14:02:00 EDT, Instructions Replace Required Details, Route to Pharmacy Electronically, [facility]... Start Date: 04/24/21 Status: OrderedMag-Ox 400 400 mg oral tablet 1 tablet = 400 mg, By Mouth, Daily, 0 Refills, Maintenance, 04/10/21 2:32:00 EDT, Tablet Start Date: 04/10/21 Status: OrderedMyfortic 180 mg oral delayed release tablet 3 tablet = 540 mg, By Mouth, 2 times a day, # 180 tablet, 1 Refills, Maintenance, 01/30/21 13:51:00 EDT, [facility], 165.1, cm, 01/30/21 7:26:00 EDT, Height, 80.9, kg, 01/26/21 20:14:00 EDT, Dry Weight Start Date: 01/30/21 Stop Date: 03/31/21 Status: OrderedRenvela 800 mg oral tablet 1 tablet = 800 mg, By Mouth, 3 times a day with meals, # 90 tablet, 0 Refills, Maintenance, 04/24/2114:03:00 EDT, Tablet, [facility], Partial fill upon patient request if the prescription is for a schedule II opioid drug., 165, cm, 1... Start Date: 04/24/21 Stop Date: 05/24/21 Status: OrderedtraMADol 50 mg oral tablet 1 tablet = 50 mg, By Mouth, Daily at bedtime, for severe pain may obtain fewer, # 7 tablet, 0 Refills, Maintenance, 11/10/21 11:27:00 EDT[facility] [...]
--- OUTSIDE RECORDS SUMMARY | 2022-09-08 11:34 | XMS_ITS | Continuity of Care Document ---
:1990 Author Organization [facility] Address [address] [place] [address]- Care Team Providers Name Role Phone Jhony BRADLEY, Denice Primary Care Physician Encounter [facility] Date(s): 05/22/21 - 06/27/[address] [address] Attending Physician: Jignesh Kiser DO Admitting Physician: Jignesh Kiser DO Referring Physician: Jignesh Kiser DO Allergies, Adverse Reactions, Alerts Substance Reaction Severity Status NKA Active Immunizations Given and Recorded Vaccine Date Status Refusal Reason pneumococcal 23-valent vaccine1 12/30/14 Given pneumococcal 23-valent vaccine2 03/20/10 Given influenza virus vaccine, live3 12/30/14 Given Not Given Vaccine Date Status Refusal Reason influenza virus vaccine, inactivated 04/11/21 Not Given Patient Refuses 1Admin Note: [id number] Note: By [id number] Note: Dialysis Medications apixaban 5 mg oral tablet 1 tablet = 5 mg, By Mouth, 2 times a day, # 60 tablet, 3 Refills, Maintenance, 05/02/21 20:58:00 EST, Tablet, [facility], Partial fill upon patient request if the prescription is for aschedule II opioid drug., 165, cm, 04/24/21 11:40... Start Date: 05/02/21 Stop Date: 08/30/21 Status: Orderedaspirin 81 mg oral tablet, chewable 81 mg, 1, tablet, By Mouth, Daily, # 30 tablet, Refills 0, Tot. Refills 0, Maintenance, 04/24/21 14:02:00 EDT, Route to Pharmacy Electronically, [facility], Partial fill upon patient request if the prescription is for a schedule II op... Start Date: 04/24/21 Stop Date: 05/24/21 Status: Orderedatorvastatin 20 mg oral tablet 1 tablet = 20 mg, By Mouth, Daily, # 90 tablet, 0 Refills, Maintenance, 01/30/21 13:55:00 EDT, Tablet, [facility], Partial fill upon patient request if the prescription is for a schedule II opioid drug., 165.1, cm, 01/30/21 7:26:00 EDT,... Start Date: 01/30/21 Status: Orderedcalcitriol 0.25 mcg oral capsule 2 capsule = 0.5 mcg, By Mouth, Every Tuesday, Tuesday and Tuesday, # 26 capsule, 0 Refills, Maintenance, 04/24/21 14:01:00 EDT, Capsule, [facility], Partial fill upon patient request if the prescription is for a schedule II opioid micheal... Start Date: 04/24/21 Stop Date: 05/24/21 Status: Orderedcarvedilol 12.5 mg oral tablet 12.5 mg, 1, tablet, By Mouth, Every 12 hours, # 60 tablet, Refills 1, Tot. Refills 1, Maintenance, 03/08/21 12:23:00 EDT, [facility], Partial fill upon patient request if the prescription is for a schedu... Start Date: 03/08/21 Status: OrderedEnvarsus XR 4 mg oral tablet, extended release 3 tablet = 12 mg, By Mouth, Daily in AM, # 42 tablet, 0 Refills, Maintenance, 04/24/21 14:09:00 EDT,XR Tablet, [facility], Partial fill upon patient request if the prescription is fora schedule II opioid drug., 165, cm, 04/24/21 11:... Start Date: 04/24/21 Stop Date: 05/08/21 Status: Orderedisosorbide mononitrate 30 mg oral tablet, extended release 60 mg, 2, tablet, By Mouth, Daily, # 60 tablet, Refills 1, Tot. Refills 1, Maintenance, 01/30/21 13:54:00 EDT, Route to Pharmacy Electronically, [facility], Partial fill upon patient request if [...] tablet, 1 Refills, Maintenance, 01/30/21 13:51:00 EDT, [facility], 165.1, cm, 01/30/21 7:26:00 EDT, Height, 80.9, kg, 01/26/21 20:14:00 EDT, Dry Weight Start Date: 01/30/21 Stop Date: 03/31/21 Status: OrderedRenvela 800 mg oral tablet 1 tablet = 800 mg, By Mouth, 3 times a day with meals, # 90 tablet, 0 Refills, Maintenance, 04/24/2114:03:00 EDT, Tablet, [facility], Partial fill upon patient [...]
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
--- OUTSIDE RECORDS SUMMARY | 2022-09-08 11:35 | XMS_ITS | Continuity of Care Document ---
:1990 Author Organization [facility] Address [address] [place] [phone]- Care Team Providers Name Role Phone Jhony BRADLEY, Denice Primary Care Physician Encounter [facility] [place] Date(s): 02/02/21 - 03/15/21 [facility] [address] [place] [phone]- Attending Physician: Gabrielle Blue MD Admitting Physician: Gabrielle Blue MD Allergies, Adverse Reactions, Alerts Substance Reaction Severity Status NKA Active Immunizations Given and Recorded Vaccine Date Status Refusal Reason pneumococcal 23-valent vaccine1 12/30/14 Given pneumococcal 23-valent vaccine2 03/20/10 Given influenza virus vaccine, live3 12/30/14 Given 1Admin Note: [id number] Note: By [id number] Note: Dialysis Medications amLODIPine 5 mg oral tablet 5 mg, 1, tablet, By Mouth, Daily, # 30 tablet, Refills 0, Tot. Refills 0, Maintenance, 03/08/21 12:25:00 EDT, Route to Pharmacy Electronically, [facility], Partial fill upon patient request if the prescription is for a schedule II opioid... Start Date: 03/08/21 Stop Date: 04/07/21 Status: Orderedapixaban 5 mg oral tablet 1 tablet = 5 mg, By Mouth, 2 times a day, # 60 tablet, 0 Refills, Maintenance, 03/08/21 12:23:00 EDT, Tablet, [facility], Partial fill upon patient request if the prescription is for a schedule II opioid drug., 165, cm, 03/08/21 8:48:00... Start Date: 03/08/21 Status: Orderedaspirin 81 mg oral delayed release tablet 81 mg, 1, tablet, By Mouth, Daily, # 90 tablet, Refills 0, Tot. Refills 0, Maintenance, 01/30/21 13:55:00 EDT, Route to Pharmacy Electronically, [facility], Partial fill upon patient request if the prescription is for a schedule II opioi... Start Date: 01/30/21 Status: Orderedatorvastatin 20 mg oral tablet 1 tablet = 20 mg, By Mouth, Daily, # 90 tablet, 0 Refills, Maintenance, 01/30/21 13:55:00 EDT, Tablet, [facility], Partial fill upon patient request if the prescription is for a schedule II opioid drug., 165.1, cm, 01/30/21 7:26:00 EDT,... Start Date: 01/30/21 Status: Orderedcarvedilol 12.5 mg oral tablet 12.5 mg, 1, tablet, By Mouth, Every 12 hours, # 60 tablet, Refills 1, Tot. Refills 1, Maintenance, 03/08/21 12:23:00 EDT, Route to Pharmacy Electronically, [facility], Partial fill upon patient request if the prescription is for a schedu... Start Date: 03/08/21 Status: Orderedcinacalcet 30 mg oral tablet 1 tablet = 30 mg, By Mouth, Daily, # 30 tablet, 1 Refills, Maintenance, 01/30/21 13:51:00 EDT, Tablet, [facility], Partial fill upon patient request if the prescription is for a schedule II opioid drug., 165.1, cm, 01/30/21 7:26:00 EDT,... Start Date: 01/30/21 Status: OrderedEnvarsus XR 1 mg oral tablet, extended release 1 tablet = 1 mg, By Mouth, 2 times a day, # 60 tablet, 1 Refills, Maintenance, 01/30/21 13:52:00 EDT, XR Tablet, [facility], Partial fill upon patient request if the prescription is for aschedule II opioid drug., 165.1, cm, 01/30/21 7:2... Start Date: 01/30/21 Status: OrderedEnvarsus XR 4 mg oral tablet, extended release 1 tablet = 4 mg, By Mouth, 2 times a day, # 60 tablet, 0 Refills, Maintenance, 01/30/21 13:52:00 EDT, XR Tablet, [facility], Partial fill upon patient request if the prescription is for aschedule II opioid drug., 165.1, cm, 01/30/21 7:2... Start Date: 01/30/21 Status: OrderedhydrALAZINE 25 mg oral tablet 25 mg, 1, tablet, By Mouth, 3 times a day, # 90 tablet, Refills 1, Tot. Refills 1, Maintenance, 03/08/21 12:24:00 EDT, Route to Pharmacy Electronically, [facility], Partial fill upon patient request if the prescription is for a schedule... Start Date: 03/08/21 Status: Orderedisosorbide mononitrate 30 mg oral tablet, extended release 30 mg, 1, tablet, By Mouth, Daily, # 30 tablet, Refills 1, Tot. Refills 1, Maintenance, 01/30/21 13:54:00 EDT, Route to Pharmacy Electronically, [facility], Partial fill upon patient request if the prescription is for a schedule II opioi... Start Date: 01/30/21 Stop Date: 03/31/21 Status: OrderedMyfortic 180 mg oral delayed release tablet 3 tablet = 540 mg, By Mouth, 2 times a day, # 180 tablet, 1 Refills, Maintenance, 01/30/21 13:51:00 EDT, [facility], 165.1, cm, 01/30/21 7:26:00 EDT, Height, 80.9, kg, 01/26/21 20:14:00 EDT, Dry Weight Start Date: 01/30/21 Stop Date: 03/31/21 Status: Orderedsodium bicarbonate 650 mg oral tablet 1 tablet = 650 mg, By Mouth, 2 times a day, # 60 tablet, 0 Refills, Acute 05/30/21 10:00:00 EST, 01/30/21 13:51:00 EDT, Tablet, [facility], Partial fill upon patient request if the prescription is for a schedule II opioid drug., 165.1, c... Start Date: 01/30/21 Stop Date: 05/30/21 Status: Orderedtorsemide 20 mg oral tablet 2 tablet = 40 mg, By Mouth, Daily, # 60 tablet, 1 Refills, Maintenance, 03/08/21 12:24:00 EDT, Tablet, [facility], Partial fill upon patient [...] 01/30/21 13:50:00 EDT, Route to Pharmacy Electronically, [facility], Partial fill upon patient [...]
[2022-09-08] MEDS: oxyCODONE HCl Immed Release 5 MG TABLET PO ×2 (14:09→15:37)
[2022-09-08 14:41] VITALS: BP 152/86; PULSE 95; RESP 18; O2SAT 94
== END 2022-09-08 15:43 | disposition home or self-care (01) ==
PROVIDERS: Emergency Provider Emergency Medicine
DX: S30.1XXA Contusion of abdominal wall, initial encounter (principal); V43.62XA Car passenger injured in collision with other type car in traffic accident, initial encounter; R51.9 Headache, unspecified; Y93.89 Activity, other specified; Y92.414 Local residential or business street as the place of occurrence of the external cause; Y99.8 Other external cause status
CPT/HCPCS: 70450; 72125; 73120; 74176; 99284